=== PATIENT | female | born 1950 | race Caucasian/White ===

== ENCOUNTER 2017-09-01 13:09 | Emergency (ER) | payer MEDICARE ==
[~2017-09-01] VITALS: Ht 170.2 cm; Wt 74.8 kg
[2017-09-01 13:10] VITALS: BP 116/72
[2017-09-01] MEDS ORDERED: oxyCODONE/APAP (5/325 MG) 1 UDTAB TABLET ONE (13:40)
[2017-09-01] MEDS ORDERED: IBUPROFEN 600 MG TABLET PO ONE ×2 (13:40→14:00)
[2017-09-01] MEDS ORDERED: oxyCODONE/APAP (5/325 MG) 1 UDTAB TABLET PO ONE (14:00)
== END 2017-09-01 14:46 | disposition home or self-care (01) ==
LOC: ER 13:13
DX: M25.571 Pain in right ankle and joints of right foot (principal); Z59.0 Homelessness
CPT/HCPCS: 73610-TC; A4606; Z7610

== ENCOUNTER 2017-09-05 20:23 | Emergency (ER) | payer MEDICARE ==
[~2017-09-05] VITALS: Ht 170.2 cm; Wt 74.8 kg
[2017-09-05 20:33] VITALS: BP 147/85
[2017-09-05] MEDS ORDERED: LOPERAMIDE HCL (2 MG CAP) 2 MG CAPSULE PO ONE ×2 (21:44→22:00)
== END 2017-09-05 21:54 | disposition home or self-care (01) ==
LOC: ER 20:23
DX: R19.7 Diarrhea, unspecified (principal); Z59.0 Homelessness; F32.9 Major depressive disorder, single episode, unspecified; F41.9 Anxiety disorder, unspecified
CPT/HCPCS: A4606; Z7610

== ENCOUNTER 2017-11-23 17:41 | Emergency (ER) | payer MEDICARE, MEDICAID ==
[~2017-11-23] VITALS: Ht 170.2 cm; Wt 65.3 kg
[2017-11-23 17:57] VITALS: BP 168/95
[2017-11-23] MEDS ORDERED: ACETAMINOPHEN ES 500 MG TABLET ONE (18:16)
[2017-11-23] MEDS ORDERED: ACETAMINOPHEN 325 MG TABLET PO ONE (18:30)
== END 2017-11-23 20:20 | disposition home or self-care (01) ==
LOC: ER 17:43
DX: S63.616A Unspecified sprain of right little finger, initial encounter (principal); F32.9 Major depressive disorder, single episode, unspecified; F41.9 Anxiety disorder, unspecified; F17.200 Nicotine dependence, unspecified, uncomplicated; Z60.2 Problems related to living alone; W01.0XXA Fall on same level from slipping, tripping and stumbling without subsequent striking against object, initial encounter; Y93.89 Activity, other specified; Y92.89 Other specified places as the place of occurrence of the external cause; Y99.8 Other external cause status
CPT/HCPCS: 73140-TC; A4606; Z7610

== ENCOUNTER 2017-12-26 23:07 | Emergency (ER) | payer MEDICARE, OTHER ==
[~2017-12-26] VITALS: Ht 170.2 cm; Wt 63.5 kg
--- NOTE | 2017-12-27 01:13 | NUR ---
PT AMBULATED IN WITH A STEADY GAIT. PT IS TRYING TO GIVE A URINE SAMPLE. PT IS C/O LOWER BACK PAIN AND UNABLE TO CONTROL HER BLADDER.
--- NOTE | 2017-12-27 01:38 | NUR ---
PT LEFT FOR CT VIA GURNEY.
--- NOTE | 2017-12-27 01:55 | NUR ---
PT RETURNED FROM CT.
[2017-12-27] MEDS ORDERED: IBUPROFEN 400 MG TABLET ONE (03:08)
--- NOTE | 2017-12-27 03:14 | NUR ---
Patient discharged to home in stable condition. Written and verbal after care instructions given. Patient verbalizes understanding of instruction. PT REC'D 800 MG IBUPROPHEN PO AND THEN PT AMBULATED OUT WITH A STEADY GAIT. VSS.
[2017-12-27 03:15] VITALS: BP 138/97
[2017-12-27] MEDS ORDERED: IBUPROFEN 400 MG TABLET PO ONE (03:30)
== END 2017-12-27 03:16 | disposition home or self-care (01) ==
LOC: ER 23:07
DX: R32 Unspecified urinary incontinence (principal); F41.9 Anxiety disorder, unspecified; F17.200 Nicotine dependence, unspecified, uncomplicated; Z60.2 Problems related to living alone
CPT/HCPCS: 72128; 72131; 99284; A4606; Z7610

== ENCOUNTER 2018-01-18 15:32 | Inpatient (IN) | payer MEDICARE, OTHER ==
[~2018-01-18] VITALS: Ht 170.2 cm; Wt 64.4 kg
--- NOTE | 2018-01-18 15:34 | NUR ---
BIB FABRIC AND ACCESSORIES ESTIMATOR FOR HOMELESS FOR PSYCH EVAL, PHILIP NOTED, VSS, RESP EVEN AND UNLABORED, PT WAS PUT ON MONITOR, WAITING FOR MD RYAN.
[2018-01-18 16:20] LABS: CALCIUM, SERUM 9.1 mg/dL (8.5-10.1); CARBON DIOXIDE 34 mmol/L (21-32); CHLORIDE 105 mmol/L (98-107); CREATININE 0.8 mg/dL (0.6-1.3); GLUCOSE 136 mg/dL (74-106); SODIUM SERUM 141 mmol/L (136-145); UREA NITROGEN, BLOOD 21 mg/dL (7-18)
--- NOTE | 2018-01-18 16:30 | NUR ---
PT UNABLE TO GIVE URINE SAMPLE AT THIS MOMENT
[2018-01-18 16:31] LABS: ALANINE AMINOTRANSFERASE 21 U/L (12-78); ALBUMIN 3.6 g/dL (3.4-5.0); ALKALINE PHOSPHATASE 90 U/L (46-116); ASPARTATE AMINOTRANSFERASE 19 U/L (15-37); BILIRUBIN,DIRECT 0.1 mg/dL (0.0-0.2); BILIRUBIN,TOTAL 0.4 mg/dL (0.2-1.0); TOTAL PROTEIN, SERUM 6.8 g/dL (6.4-8.2)
[2018-01-18 16:48] LABS: ACETAMINOPHEN < 2 ug/ml (10-30); ALCOHOL, BLOOD < 3 mg/dL (0-0); SALICYLATE < 2.8 mg/dL (2.8-20.0)
[2018-01-18 16:53] LABS: BASOPHILS % (AUTO) 0.8 % (0.0-2.0); HEMATOCRIT 34 % (33-45); HEMOGLOBIN 11.7 g/dL (11.5-14.8); LYMPHOCYTES # (AUTO) 1.6 /CMM (0.8-4.8); LYMPHOCYTES % (AUTO) 30.2 % (20.0-44.0); MEAN CORPUSCULAR HEMOGLOBIN 30 PG (26.0-33.0); MEAN CORPUSCULAR HGB CONC 34 g/dl (31.0-36.0); MEAN CORPUSCULAR VOLUME 88 fL (82-100); MONOCYTES # (AUTO) 0.3 /CMM (0.1-1.30); MONOCYTES % (AUTO) 6.5 % (2.0-12.0); NEUTROPHILS # (AUTO) 3.2 /CMM (1.8-8.9); NEUTROPHILS % (AUTO) 59.5 % (43.0-81.0); PLATELET COUNT (AUTO) 167 /CMM (150-450); RDW COEFFICIENT OF VARIATION 13.1 (11.5-15.0); WHITE BLOOD COUNT (AUTO) 5.3 K/uL (4.3-11.0)
--- NOTE | 2018-01-18 16:59 | NUR ---
PINKY PSYCH CLINICIAN ON THE WAY TO [facility] PT
[2018-01-18] MEDS ORDERED: POTASSIUM CHLORIDE 20 MEQ TAB.PRT.SR PO ONE ×2 (17:00→17:04)
[2018-01-18] MEDS ORDERED: DIPH1TAB28 PO (17:05)
[2018-01-18] MEDS ORDERED: ONDA4TAB8 SL (17:05)
[2018-01-18] MEDS ORDERED: NAPR-1009 PO (17:05)
[2018-01-18 17:12] LABS: APPEARANCE,URINE Slightly Cloudy (CLEAR); BILIRUBIN,URINE SMALL (NEGATIVE); BLOOD, URINE Negative Ery/uL (NEGATIVE); COLOR,URINE Dark (YELLOW); KETONES,URINE Negative (NEGATIVE); LEUKOCYTE ESTERASE ,URINE Negative (NEGATIVE); NITRITE, URINE Negative (NEGATIVE); PROTEIN,URINE 30 mg/dl (NEGATIVE); UGLUCOSE Negative (NEGATIVE)
[2018-01-18 17:25] LABS: BACTERIA,URINE Few /HPF (None Seen); MUCUS,URINE Many /LPF (None Seen); RBC,URINE 0-2 /HPF (0-2); SQUAMOUS EPITHELIAL CELL,UR Few /HPF (None Seen); WBC,URINE 0-2 /HPF (0-3)
--- NOTE | 2018-01-18 18:55 | NUR ---
REPORT GIVEN TO QUAN DAVIS FOR TROY.
--- NOTE | 2018-01-18 19:21 | NUR ---
REPORT GIVEN TO INDRA GLASS GPS FOR TROY
--- NOTE | 2018-01-18 19:37 | NUR ---
Patient is resting comfortably in bed. Easily aroused. VSS. NAD. SAFETY MEASURES IN PLACE. CALL LIGHT WITHIN REACH. PREPARING PATIENT FOR TRANSPORT
--- NOTE | 2018-01-18 19:42 | NUR ---
PT TRANSPORTED STABLE CONDITION. VSS.
[2018-01-18] MEDS ORDERED: ONDANSETRON 4 MG TAB.RAPDIS SL PRN (20:00)
[2018-01-18] MEDS ORDERED: MAG HYDROX/AL HYDROX/SIMETH 30 ML UDC PO PRN (20:00)
[2018-01-18] MEDS ORDERED: NAPROXEN 500 MG TABLET PO PRN (20:00)
[2018-01-18] MEDS ORDERED: DIPHENOXYLATE HCL/ATROP SULF 1 UDTAB TABLET PO PRN (20:00)
[2018-01-18] MEDS ORDERED: LORAZEPAM 0.5 MG TABLET PO PRN (20:00)
[2018-01-18] MEDS ORDERED: MAGNESIUM HYDROXIDE 30 ML UDC PO PRN (20:00)
--- NOTE | 2018-01-18 20:50 | NUR ---
ADMISSION NOTES: ADMITTED A 67Y/O FEMALE, ADMITTED FROM ER. PT IS HOMELESS. PT IS ON 5150 HOLD FOR GD. PER HOLD PT IS CONFUSED, ANGRY, IRRITABLE. PT STATED "THERE'S A MAN WHOSE BEEN STALKING ME FOR 15 YRS THE POLICE ARE NOT DOING ANYTHING ABOUT IT". PATIENT STATED THAT SHE THINK PEOPLE IS AFTER HER. PT HAS NOT BEEN TAKING HER MEDICATION FOR THE PAST FEW MONTHS. PT HAS HISTORY OF BIPOLAR DISORDER. UPON FACE TO FACE ASSESSMENT. PATIENT APPEARS TO BE ALERT, ORIENTED X1, ANXIOUS, CONFUSED, IRRITABLE, EASILY AGITATED, PARANOID. V/S STABLE. NO COMPLAIN OF PAIN/DISCOMFORT. NO ACUTE DISTRESS NOTED. BELONGINGS INVENTORIED AND CHECKED FOR CONTRABAND. PUT IT IN SAFE/LOCKED CABINET. PATIENT IS UNDER THE PSYCHIATRIC CARE OF DR. COLE AND UNDER THE MEDICAL CARE OF DR. PEARL. BOTH DOCTORS ARE AWARE OF THE ADMISSION. REFUSED SKIN/BODY ASSESSMENT. MRSA DONE IN ER. BED LOCKED AND PLACED IN LOWEST POSITION. WILL CONTINUE TO MONITOR Q15MIN FOR SAFETY AND BEHAVIOR.
[2018-01-19 00:04] VITALS: BP 117/76
[2018-01-19 07:08] LABS: BASOPHILS % (AUTO) 0.6 % (0.0-2.0); EOSINOPHILS % (AUTO) 5.5 % (0.0-6.0); HEMATOCRIT 37 % (33-45); HEMOGLOBIN 12.7 g/dL (11.5-14.8); LYMPHOCYTES # (AUTO) 1.6 /CMM (0.8-4.8); LYMPHOCYTES % (AUTO) 42.9 % (20.0-44.0); MEAN CORPUSCULAR HEMOGLOBIN 31 PG (26.0-33.0); MEAN CORPUSCULAR HGB CONC 34 g/dl (31.0-36.0); MEAN CORPUSCULAR VOLUME 90 fL (82-100); MONOCYTES # (AUTO) 0.3 /CMM (0.1-1.30); MONOCYTES % (AUTO) 8.9 % (2.0-12.0); NEUTROPHILS # (AUTO) 1.6 /CMM (1.8-8.9); NEUTROPHILS % (AUTO) 42.1 % (43.0-81.0); PLATELET COUNT (AUTO) 157 /CMM (150-450); RDW COEFFICIENT OF VARIATION 13.8 (11.5-15.0); RED BLOOD CELL COUNT(AUTO) 4.13 MIL/uL (4.0-5.2); WHITE BLOOD COUNT (AUTO) 3.8 K/uL (4.3-11.0)
[2018-01-19 07:26] LABS: CHOLESTEROL 156 mg/dL (<200); HDL CHOLESTEROL 49 mg/dL (40-60); LDL 97 mg/dL (0-99); TRIGLYCERIDES 67 mg/dL (30-150)
[2018-01-19 07:29] LABS: ALBUMIN 3.3 g/dL (3.4-5.0); BILIRUBIN,TOTAL 0.6 mg/dL (0.2-1.0); CALCIUM, SERUM 8.6 mg/dL (8.5-10.1); CREATININE 0.7 mg/dL (0.6-1.3); POTASSIUM 3.3 mmol/L (3.5-5.1); TOTAL PROTEIN, SERUM 6.4 g/dL (6.4-8.2)
[2018-01-19 08:00] VITALS: BP 117/81
[2018-01-19] MEDS ORDERED: POTASSIUM CHLORIDE 20 MEQ TAB.PRT.SR PO ONE (10:30)
[2018-01-19] MEDS: ACETAMINOPHEN 325 MG TABLET PO PRN ×2 (10:44→22:03)
[2018-01-19] MEDS: DIVALPROEX SODIUM 250 MG TABLET.DR PO SCH ×2 (12:07→21:54)
[2018-01-19] MEDS: VENLAFAXINE XR 75 MG CAP.SR.24H PO SCH (12:07)
--- NOTE | 2018-01-19 15:18 | NUR ---
Initial Discharge Plan: Pt is currently homeless and does not have anywhere to go until she receives her section 8 housing. Per pt, she agreed to go to a shelter facility until her housing voucher comes in. SW will work with the pt and the MD regarding appropriate discharge planning. SW will form a safe and proper discharge.
[2018-01-19 16:08] VITALS: BP 120/76
[2018-01-19 20:00] VITALS: BP_SYST 108; BP_SYST 126; BP_DIAS 64; BP_DIAS 75
[2018-01-19] MEDS: QUETIAPINE FUMARATE 25 MG TABLET PO SCH (21:54)
--- NOTE | 2018-01-19 22:05 | NUR ---
RN NOTES PT C/O MILD HEADACHE, REQUESTING TYLENOL. ADMINISTERED PRN TYLENOL ORDERED.
[2018-01-20] MEDS: VENLAFAXINE XR 75 MG CAP.SR.24H PO SCH (08:11)
[2018-01-20] MEDS: DIVALPROEX SODIUM 250 MG TABLET.DR PO SCH ×2 (08:11→21:04)
[2018-01-20 08:24] VITALS: BP 131/82
[2018-01-20 16:00] VITALS: BP 141/82
[2018-01-20 20:00] VITALS: BP 139/89
[2018-01-20] MEDS: ZOLPIDEM TARTRATE 5 MG TABLET PO PRN (22:04)
[2018-01-20] MEDS: QUETIAPINE FUMARATE 25 MG TABLET PO SCH (22:05)
[2018-01-21 08:40] VITALS: BP 124/70
[2018-01-21] MEDS: DIVALPROEX SODIUM 250 MG TABLET.DR PO SCH ×2 (09:03→21:10)
[2018-01-21] MEDS: VENLAFAXINE XR 75 MG CAP.SR.24H PO SCH (09:03)
[2018-01-21 16:00] VITALS: BP 120/69
[2018-01-21 20:36] VITALS: BP 131/73
[2018-01-21] MEDS: QUETIAPINE FUMARATE 25 MG TABLET PO SCH (21:10)
[2018-01-22 08:00] VITALS: BP 113/68
[2018-01-22] MEDS: VENLAFAXINE XR 75 MG CAP.SR.24H PO SCH (08:12)
[2018-01-22] MEDS: DIVALPROEX SODIUM 250 MG TABLET.DR PO SCH ×2 (08:12→20:54)
--- NOTE | 2018-01-22 15:43 | NUR ---
CAITIE spoke to Alexa Turner ([phone]) from the [facility] regarding discharge planning. Alexa stated that her housing is going to need more time and so a retirement facility would be a good discharge plan.
[2018-01-22 16:00] VITALS: BP 110/60
[2018-01-22 19:49] VITALS: BP 113/72
[2018-01-22] MEDS: QUETIAPINE FUMARATE 25 MG TABLET PO SCH (21:07)
[2018-01-22] MEDS: ZOLPIDEM TARTRATE 5 MG TABLET PO PRN (21:41)
[2018-01-23 08:00] VITALS: BP 118/67
[2018-01-23] MEDS: VENLAFAXINE XR 75 MG CAP.SR.24H PO SCH (08:15)
[2018-01-23] MEDS: DIVALPROEX SODIUM 250 MG TABLET.DR PO SCH ×2 (08:15→21:13)
[2018-01-23 16:00] VITALS: BP 108/67
[2018-01-23 20:08] VITALS: BP 98/52
[2018-01-23] MEDS: QUETIAPINE FUMARATE 25 MG TABLET PO SCH (21:13)
--- NOTE | 2018-01-23 21:15 | NUR ---
GPS-RN PATIENT IS REQUESTING FOR NICOTINE PATCH, PATIENT STATED SHE CONSUMED 1/2 PACK OF CIGARETTE PER DAY. OXYGEN FURNACE OPERATOR ALVINA NOTIFIED WITH NEW ORDERS.
[2018-01-23] MEDS: ACETAMINOPHEN 325 MG TABLET PO PRN (21:26)
[2018-01-24 08:00] VITALS: BP 126/63
[2018-01-24] MEDS: VENLAFAXINE XR 75 MG CAP.SR.24H PO SCH (08:02)
[2018-01-24] MEDS: DIVALPROEX SODIUM 250 MG TABLET.DR PO SCH ×2 (08:02→20:32)
[2018-01-24] MEDS: NICOTINE PATCH (21MG) 21 MG PATCH.TD24 TD SCH (08:23)
[2018-01-24 16:00] VITALS: BP 132/86
[2018-01-24 19:50] VITALS: BP 98/52
[2018-01-24] MEDS: ACETAMINOPHEN 325 MG TABLET PO PRN (20:36)
[2018-01-24] MEDS: QUETIAPINE FUMARATE 25 MG TABLET PO SCH (21:02)
[2018-01-24] MEDS: ZOLPIDEM TARTRATE 5 MG TABLET PO PRN (21:44)
[2018-01-25 08:00] VITALS: BP 130/78
[2018-01-25] MEDS: VENLAFAXINE XR 75 MG CAP.SR.24H PO SCH (08:09)
[2018-01-25] MEDS: NICOTINE PATCH (21MG) 21 MG PATCH.TD24 TD SCH (08:09)
[2018-01-25] MEDS: DIVALPROEX SODIUM 250 MG TABLET.DR PO SCH ×2 (08:09→21:04)
[2018-01-25] MEDS: ACETAMINOPHEN 325 MG TABLET PO PRN (13:51)
[2018-01-25 15:56] VITALS: BP 107/66
[2018-01-25 19:59] VITALS: BP 128/72
[2018-01-25 20:00] VITALS: BP 128/72
[2018-01-25] MEDS: QUETIAPINE FUMARATE 25 MG TABLET PO SCH (21:04)
[2018-01-25] MEDS: ZOLPIDEM TARTRATE 5 MG TABLET PO PRN (21:41)
[2018-01-26 08:00] VITALS: BP 118/67
[2018-01-26] MEDS: DIVALPROEX SODIUM 250 MG TABLET.DR PO SCH (08:46)
[2018-01-26] MEDS: VENLAFAXINE XR 75 MG CAP.SR.24H PO SCH (08:47)
[2018-01-26] MEDS: NICOTINE PATCH (21MG) 21 MG PATCH.TD24 TD SCH (08:47)
--- NOTE | 2018-01-26 09:17 | NUR ---
DR. COLE GAVE AN ORDER TO D/C HOLD AND D/C TO [facility] AND TO FOLLOW UP WITH PSYCH AND MEDICAL DOCTORS. PSYCHIATRIST ORDERED TO CONTINUE SAME MEDS INCLUDING PRN.
--- NOTE | 2018-01-26 11:20 | NUR ---
Pt was accepted to [facility] according to CYRIL and Uziel ([phone]).
--- NOTE | 2018-01-26 11:22 | NUR ---
CAITIE called Alexa Turner ([phone]) from the [facility] and left her a message on her voicemail stating that the pt is being transferred to a snf facility called [facility] and provided her with the address and the phone number of the facility.
--- NOTE | 2018-01-26 14:31 | NUR ---
Discharge Note: Pt was discharged to [facility] ([facility]) located at [address] [place] [address]; ([phone]). Pt was transported via [facility] (Trip #[id number]) at 2PM. Pt did not want any of her family members to be contacted and so the only contacted Alexa Turner ([phone]) from the [facility] and informed her of the new location. Upon discharge, pt was extremely anxious about leaving the facility and going to the new one because she wanted to be in the real world. Pts mood was euthymic and her affect was excited and anxious. Pt denied both homicidal and suicidal ideation as well as auditory and visual hallucinations. Pt was provided with substance abuse referrals as well as with smoking cessation referrals that are listed below. Pt will be under the care of psychiatrist, Dr. Webber, located at [address] [address], [place] [address]; and floor director, Dr. Mayra Harmon, located at [address] [place] [address]; . Substance Abuse Referrals: [facility] [address] [place] [address] Tel. [facility] Primary Care [facility] [address] [place] Provider Mental Health Treatment Tele-dermatology HIV Services Telemedicine Services [facility] [address] [place] [address] [facility] [address] [place] [address] Smoking Cessation Referrals: [facility] 800-LUNGUSA [employer] [phone]
--- NOTE | 2018-01-26 14:35 | NUR ---
GPS/RN-NOTES PATIENT WAS DISCHARGE TO [facility] ([facility]) TODAY. AND DR. PETTIT MADE AWARE WITH ORDERS.REPORT WAS GIVEN TO YU (ADMITTING NURSE) FACILITY STAFF. PATIENT DID NOT VERBALIZE SI/HI,DENIES VISUAL,AUDITORY HALLUCINATIONS AT THE TIME OF DISCHARGE. PER PATIENT DYE PENETRANT TESTING TECHNICIAN Alexa Turner ([phone]) WAS AWARE OF THE DISCHARGE.PATIENT LEFT THE UNIT IN STABLE CONDITION WITH ALL HER BELONGINGS.SERGEANT OF CORRECTIONS BY AMBULANCE VIA GURNEY WITH TWO STAFF ASSIST.
== END 2018-01-26 14:30 | DRG 885 ==
LOC: ER 15:35 → GPS 18:39
PROVIDERS: ADMIT Psychiatry & Neurology Psychiatry; ATTEND Psychiatry & Neurology Psychiatry
DX: F31.5 Bipolar disorder, current episode depressed, severe, with psychotic features (principal); F29 Unspecified psychosis not due to a substance or known physiological condition; Z73.6 Limitation of activities due to disability; I10 Essential (primary) hypertension; F41.9 Anxiety disorder, unspecified; Z79.899 Other long term (current) drug therapy; F15.10 Other stimulant abuse, uncomplicated; S62.636A Displaced fracture of distal phalanx of right little finger, initial encounter for closed fracture; W19.XXXA Unspecified fall, initial encounter; Y92.9 Unspecified place or not applicable; E78.5 Hyperlipidemia, unspecified; J43.9 Emphysema, unspecified; Z59.0 Homelessness; Z81.8 Family history of other mental and behavioral disorders
CPT/HCPCS: 36415; 73140-TC; 80048-TC; 80053-TC; 80061-TC; 80076-TC; 80164-TC; 80305; 81000-TC; 85025-TC; 87081-TC; A4606; G0480; Z7610

== ENCOUNTER 2018-03-08 13:49 | Inpatient (IN) | payer MEDICARE, OTHER ==
[~2018-03-08] VITALS: Ht 170.2 cm; Wt 62.1 kg
[~2018-03-08 13:49] MED LIST: DIPH1TAB28 PO; NAPR-1009 PO; ONDA4TAB8 SL
--- NOTE | 2018-03-08 14:05 | NUR ---
NUMBNESS TO BILATERAL LOWER EXTREMITIES X 5 DAYS. PT AAOX3, VSS. DENIES CP, SOB, DIZZINESS, N/V/D, WEAKNESS @ THIS TIME. AWAITING EVAL BY MD/BEEF SPECIALIST.
[2018-03-08 14:45] LABS: BASOPHILS # (AUTO) 0.1 /CMM (0.0-0.2); BASOPHILS % (AUTO) 0.9 % (0.0-2.0); EOSINOPHILS % (AUTO) 2.6 % (0.0-6.0); HEMATOCRIT 36 % (33-45); HEMOGLOBIN 12.4 g/dL (11.5-14.8); LYMPHOCYTES # (AUTO) 1.8 /CMM (0.8-4.8); LYMPHOCYTES % (AUTO) 23.7 % (20.0-44.0); MEAN CORPUSCULAR HGB CONC 35 g/dl (31.0-36.0); MEAN CORPUSCULAR VOLUME 89 fL (82-100); MONOCYTES # (AUTO) 0.5 /CMM (0.1-1.30); MONOCYTES % (AUTO) 6.4 % (2.0-12.0); NEUTROPHILS # (AUTO) 4.8 /CMM (1.8-8.9); NEUTROPHILS % (AUTO) 66.4 % (43.0-81.0); PLATELET COUNT (AUTO) 215 /CMM (150-450); RDW COEFFICIENT OF VARIATION 12.8 (11.5-15.0); RED BLOOD CELL COUNT(AUTO) 4.05 MIL/uL (4.0-5.2); WHITE BLOOD COUNT (AUTO) 7.4 K/uL (4.3-11.0)
[2018-03-08 14:53] LABS: CARBON DIOXIDE 34 mmol/L (21-32); CHLORIDE 105 mmol/L (98-107); CREATININE 0.6 mg/dL (0.6-1.3); GLUCOSE 104 mg/dL (74-106); POTASSIUM 3.9 mmol/L (3.5-5.1); SODIUM SERUM 141 mmol/L (136-145); UREA NITROGEN, BLOOD 11 mg/dL (7-18)
[2018-03-08 14:55] LABS: ALCOHOL, BLOOD < 3 mg/dL (0-0)
--- NOTE | 2018-03-08 16:00 | NUR ---
PT SEEN & EVAL'D BY ART, HOTEL YARDPERSON.
--- NOTE | 2018-03-08 16:13 | NUR ---
URINE COLLECTED & SENT TO LAB.
[2018-03-08] MEDS ORDERED: ARIP5TAB20 PO (16:29)
[2018-03-08] MEDS ORDERED: SERT25TA5 PO (16:29)
--- NOTE | 2018-03-08 16:29 | NUR ---
CALLED NURSING OIL RAG WASHER AND REQUESTED A GPS BED FOR THIS PT.
--- NOTE | 2018-03-08 16:30 | NUR ---
Patient is resting comfortably in bed with eyes closed. Easily aroused. VSS
[2018-03-08 16:48] LABS: APPEARANCE,URINE CLEAR (CLEAR); BILIRUBIN,URINE NEGATIVE (NEGATIVE); BLOOD, URINE NEGATIVE Ery/uL (NEGATIVE); COLOR,URINE YELLOW (YELLOW); KETONES,URINE NEGATIVE (NEGATIVE); LEUKOCYTE ESTERASE ,URINE NEGATIVE (NEGATIVE); NITRITE, URINE NEGATIVE (NEGATIVE); PH,URINE 6.5 (5.0-8.0); PROTEIN,URINE NEGATIVE (NEGATIVE); UGLUCOSE NEGATIVE (NEGATIVE)
--- NOTE | 2018-03-08 17:10 | NUR ---
PT IS ASSIGNED TO GPS RM#: -A, DX: DEPRESSION, AND ACCEPTING PSYCHIATRIST: DR YANEZ
[2018-03-08 17:43] LABS: BACTERIA,URINE None seen /HPF (None Seen); RBC,URINE 0-2 /HPF (0-2); SQUAMOUS EPITHELIAL CELL,UR Few /HPF (None Seen); WBC,URINE 0-2 /HPF (0-3)
--- NOTE | 2018-03-08 18:08 | NUR ---
RN-CO: DR THOMAS , PORTFOLIO LEAD FOR DR COLE GAVE ADMITTING ORDERS.
[2018-03-08 18:27] VITALS: BP 118/70
[2018-03-08] MEDS ORDERED: MAGNESIUM HYDROXIDE 30 ML UDC PO PRN (18:30)
[2018-03-08] MEDS ORDERED: MAG HYDROX/AL HYDROX/SIMETH 30 ML UDC PO PRN (18:30)
--- NOTE | 2018-03-08 20:00 | NUR ---
ADMITTED FROM [facility]/ER ON VOLUNTARY STATUS FOR MAJOR DEPRESSION. PATIENT IS AWAKE ALERT ORIENTED X3, DENIES ANY PAIN, RESPIRATION EVEN, BREATHING PATTERN NON-LABORED, NO ACUTE DISTRESS NOTED. PATIENT CLAIMED THAT SHE IS HOMELESS. BELONGINGS WERE INVENTORIED AND CHECKED FOR CONTRABAND. MED RECON DONE. PATIENT IS COOPERATIVE, DEPRESSED. CALM, APPROPRIATE, THOUGHT PROCESS INTACT. SKIN CLEAR. HAD BOWEL MOVEMENT 03/08/2018. CALLED EX- [facility] IN [place] X3,, NO ANSWER, CHARGE NURSE MADE AWARE. BED LOCKED AND PLACED ON LOWEST POSITION. WILL CONTINUE TO MONITOR Q 15 MINS. TO MAINTAIN SAFETY. LUNGS DIMINISHED. PATIENT COMPLAINING OF CONGESTION, MADE AWARE IN THE DAYTIME, DR. BOCANEGRA HAS NO NEW ORDER
[2018-03-09 07:00] LABS: ALBUMIN 3.2 g/dL (3.4-5.0); BILIRUBIN,TOTAL 0.5 mg/dL (0.2-1.0); CALCIUM, SERUM 8.7 mg/dL (8.5-10.1); CREATININE 0.5 mg/dL (0.6-1.3); TOTAL PROTEIN, SERUM 6.4 g/dL (6.4-8.2)
[2018-03-09 08:00] VITALS: BP 119/74
[2018-03-09] MEDS ORDERED: ARIPIPRAZOLE 5 MG TABLET PO SCH (09:00)
[2018-03-09] MEDS: ARIPIPRAZOLE 5 MG TABLET PO SCH (13:34)
[2018-03-09] MEDS: SERTRALINE HCL 25 MG TABLET PO SCH (13:34)
--- NOTE | 2018-03-09 13:50 | NUR ---
CAITIE called the pt's daughter, Dayami ([phone]), and informed her that the pt is in the hospital and that she just wanted to know that the rest of her family members are alive and well. Pt's daughter stated none of her children have much of a relationship with the pt but they are all doing well.
[2018-03-09] MEDS: ACETAMINOPHEN 325 MG TABLET PO PRN (13:56)
--- NOTE | 2018-03-09 13:56 | NUR ---
GPS/RN-NOTES PATIENT REQUESTING FOR TYLENOL FOR HER HEADACHE. TYLENOL 650MG P.O GIVEN PRN ORDER.
--- NOTE | 2018-03-09 15:51 | NUR ---
Initial Discharge Plan: Pt is janet davis nut stated that her plan is to return to a nursing home facility. SW will work with the MD and the pt regarding discharge planning. SW will form a safe and proper discharge.
[2018-03-09 16:00] VITALS: BP 104/57
[2018-03-09 16:17] VITALS: BP 111/64
[2018-03-09 20:00] VITALS: BP 113/67
--- NOTE | 2018-03-09 20:42 | NUR ---
REQUESTING FOR A SLEEPING PILL.
[2018-03-09] MEDS: TEMAZEPAM 7.5 MG CAPSULE PO PRN (20:44)
--- NOTE | 2018-03-09 20:45 | NUR ---
TEMAZEPAM 15 MG CAP PO GIVEN FOR SLEEP, PER PATIENT'S REQUEST.
[2018-03-09] MEDS: NAPROXEN 500 MG TABLET PO PRN (21:18)
--- NOTE | 2018-03-09 21:18 | NUR ---
C/O ARTHRITIC PAIN, NECK AREA. NAPROXEN 500 MG TAB PO GIVEN.
[2018-03-10 08:00] VITALS: BP 116/69
[2018-03-10] MEDS: NICOTINE PATCH (14MG) 14 MG PATCH.TD24 TD SCH (09:01)
[2018-03-10] MEDS: SERTRALINE HCL 25 MG TABLET PO SCH (09:01)
[2018-03-10] MEDS: ARIPIPRAZOLE 5 MG TABLET PO SCH (09:01)
[2018-03-10 16:01] VITALS: BP 107/59
[2018-03-10 20:00] VITALS: BP 124/72
[2018-03-10] MEDS: TEMAZEPAM 7.5 MG CAPSULE PO PRN (21:01)
--- NOTE | 2018-03-10 21:01 | NUR ---
TWEMAZEPAM 15 MG CAP PO GIVEN FOR SLEEP PER PATIENT'S REQUEST.
[2018-03-11 08:00] VITALS: BP 119/73
[2018-03-11] MEDS: NICOTINE PATCH (14MG) 14 MG PATCH.TD24 TD SCH (09:00)
[2018-03-11] MEDS: SERTRALINE HCL 25 MG TABLET PO SCH (09:00)
[2018-03-11] MEDS: ARIPIPRAZOLE 5 MG TABLET PO SCH (09:00)
--- NOTE | 2018-03-11 14:00 | NUR ---
[id number]: PT COMPLAINED OF RIGHT ANKLE PAIN AND NOTIFIED DR. BHAVESH FAY AND PENDING RETURN PHONE CALL
[2018-03-11 16:00] VITALS: BP 111/67
--- NOTE | 2018-03-11 16:18 | NUR ---
[id number]: PT COMPLAINED OF RIGHT HAND PINKY REDNESS AND SWOLLEN. NOTIFIED DR. FAY AND PENDING RETURN PHONE CALL
--- NOTE | 2018-03-11 19:09 | NUR ---
GPS/RN OPENING NOTES RECEIVED PATIENT, IN THE ACTIVITY ROOM WATCHING TV, ALERT X2, WITH NO S/S OF DISTRESS OR CHANGE OF BEHAVIOR, RESPIRATIONS EVEN AND UNLABORED. SKIN WARM TO TOUCH. WILL MONITOR FOR ANY CHANGES. WILL CONTINUE TO MONITOR. RECEIVED ENDORSEMENT FROM AM RN FOR TROY.
[2018-03-11 19:54] VITALS: BP 120/63
[2018-03-11 19:55] VITALS: BP 111/67
[2018-03-11 20:00] VITALS: BP 109/67
[2018-03-11 20:03] VITALS: BP 109/67
[2018-03-11] MEDS: ACETAMINOPHEN 325 MG TABLET PO PRN (21:55)
[2018-03-11] MEDS: TEMAZEPAM 7.5 MG CAPSULE PO PRN (22:06)
[2018-03-12] MEDS: ACETAMINOPHEN 325 MG TABLET PO PRN (06:03)
--- NOTE | 2018-03-12 06:04 | NUR ---
GPS/RN NOTES PATIENT REPORTED PAIN IN LEFT PINKY FINGER AND LEFT ANKLE, OBSERVE SWOLLEN , TO MONITOR RELIEF, REQUEST FOR F/U FOR PAIN EFFECTIVENESS FOR RELIEF.
[2018-03-12 08:00] VITALS: BP 121/75
[2018-03-12] MEDS: NICOTINE PATCH (14MG) 14 MG PATCH.TD24 TD SCH (08:33)
[2018-03-12] MEDS: ARIPIPRAZOLE 5 MG TABLET PO SCH (08:33)
[2018-03-12] MEDS: SERTRALINE HCL 25 MG TABLET PO SCH (08:33)
--- NOTE | 2018-03-12 11:09 | NUR ---
Pt was accepted to [facility] ([facility]).
--- NOTE | 2018-03-12 11:10 | NUR ---
SW informed the pt that she was accepted to [facility] ([facility]) and that her tentative discharge date is this . The pt agreed with this plan and accepted the placement.
--- NOTE | 2018-03-12 11:16 | NUR ---
SW was told by the psychiatrist that the pt denied substance use but the labs show traces of substances in her system. CAITIE will conduct a substance abuse intervention with the pt.
--- NOTE | 2018-03-12 11:43 | NUR ---
WOUND CARE CONSULT: PT PRESENTS WITH RT 5TH FINGER SWELLING. DEFER TO MD. NO OPEN WOUNDS NOTED. PT IS AMBULATORY AND CONTINENT AT THIS TIME. WILL SEE PRN.
--- NOTE | 2018-03-12 12:07 | NUR ---
SW conducted a substance abuse intervention with the pt.
--- NOTE | 2018-03-12 15:50 | NUR ---
CAITIE called Alexa Turner ([phone]) from the [facility] and she stated that the pt can make the choice on whether or not she wants a SNF. CAITIE informed her that she wants a tent and to be out on the streets. Alexa stated that she would stop by to visit the pt with her pillowcase cutter.
[2018-03-12 16:00] VITALS: BP 120/64
--- NOTE | 2018-03-12 19:30 | NUR ---
RECEIVED PATIENT IN BED AWAKE. AO X 3, ABLE TO MAKE NEEDS KNOWN. NO ACUTE DISTRESS NOTED. DENIES ANY PAIN AT THIS TIME. SAFETY REMINDERS GIVEN. ON LOW BED WITH BILATERAL UPPER SIDE RAILS UP. CALL ROBERT WITHIN EASY REACH. WILL CONTINUE TO MONITOR.
[2018-03-12 20:00] VITALS: BP 114/67
[2018-03-12 20:02] VITALS: BP 114/63
[2018-03-12] MEDS: NAPROXEN 500 MG TABLET PO PRN (22:05)
[2018-03-12] MEDS: TEMAZEPAM 7.5 MG CAPSULE PO PRN (22:06)
[2018-03-12] MEDS: clonazePAM 0.5 MG TABLET PO PRN (23:10)
--- NOTE | 2018-03-13 06:28 | NUR ---
PATIENT ASLEEP, EASILY AROUSABLE. RESPIRATIONS EVEN. NO SIGNS OF PAIN NOTED. SLEPT WELL. NEEDS ATTENDED. SAFETY PRECAUTIONS AND COMFORT MEASURES IN PLACE. WILL GIVE REPORT TO DAY SHIFT FOR CONTINUITY OF CARE.
[2018-03-13] MEDS: IBUPROFEN 200 MG TABLET PO PRN ×2 (07:10→18:32)
[2018-03-13 08:00] VITALS: BP 112/68
--- NOTE | 2018-03-13 08:20 | NUR ---
GPS/RN PATIENT IS ANXIOUS, AGITATED AND RESTLESS, ADMINISTERED KLONOPIN 0.5 MG , WILL CONTINUE TO MONITOR.
[2018-03-13] MEDS: NAPROXEN 500 MG TABLET PO PRN (08:56)
[2018-03-13] MEDS: NICOTINE PATCH (14MG) 14 MG PATCH.TD24 TD SCH (08:56)
[2018-03-13] MEDS: ARIPIPRAZOLE 5 MG TABLET PO SCH (08:56)
[2018-03-13] MEDS: clonazePAM 0.5 MG TABLET PO PRN ×2 (08:56→12:58)
[2018-03-13] MEDS: SERTRALINE HCL 25 MG TABLET PO SCH (09:49)
--- NOTE | 2018-03-13 11:30 | NUR ---
GPS/RN PATIENT REFUSED SHOWER X 3, EXPLAINED RISKS AND BENEFITS.
--- NOTE | 2018-03-13 12:58 | NUR ---
GPS/RN PATIENT IS ANXIOUS, AGITATED AND RESTLESS, ADMINISTERED KLONOPIN 0.5 MG , WILL CONTINUE TO MONITOR.
[2018-03-13 16:00] VITALS: BP 145/99
[2018-03-13 20:28] VITALS: BP 119/69
[2018-03-13] MEDS: TEMAZEPAM 7.5 MG CAPSULE PO PRN (20:58)
[2018-03-14] MEDS: clonazePAM 0.5 MG TABLET PO PRN ×3 (05:23→18:41)
[2018-03-14 08:00] VITALS: BP 125/89
[2018-03-14] MEDS: NICOTINE PATCH (14MG) 14 MG PATCH.TD24 TD SCH (09:24)
[2018-03-14] MEDS: SERTRALINE HCL 25 MG TABLET PO SCH (09:24)
[2018-03-14] MEDS: ARIPIPRAZOLE 5 MG TABLET PO SCH (09:24)
[2018-03-14] MEDS: IBUPROFEN 200 MG TABLET PO PRN (09:33)
--- NOTE | 2018-03-14 09:34 | NUR ---
RN NOTE : C/O HEADACHE 5/10 MEDICATE WITH MOTRIN 200MG ,WILL CONTINUE TO MONITOR .
--- NOTE | 2018-03-14 11:34 | NUR ---
RN NOTE:PATIENT C/O ANXIETY ,MEDICATED WITH CLONAZEPAM 0.5MG X1 WILL CONTINUE TO MONITOR.
--- NOTE | 2018-03-14 12:27 | NUR ---
CAITIE met with the pt and she stated that she wants to be discharged to a SNF if he can be discharged today. CAITIE informed her that she would discuss this with her psychiatrist.
--- NOTE | 2018-03-14 12:28 | NUR ---
CAITIE called Alexa Turner ([phone]) from the [facility] and left a message on her voicemail asking if she was still going to visit the pt and that she is considering SNF placement once again.
--- NOTE | 2018-03-14 15:41 | NUR ---
Kyle ([phone]), from [facility], called the SW and the SW informed him that the pt is going to be discharged to [facility] tomorrow.
[2018-03-14 16:00] VITALS: BP 105/64
--- NOTE | 2018-03-14 18:41 | NUR ---
RN NOTE:PATIENT C/O ANXIETY ,MEDICATED WITH CLONAZEPAM 0.5MG X1 WILL CONTINUE TO MONITOR.
[2018-03-14 19:54] VITALS: BP 144/97
[2018-03-14] MEDS: TEMAZEPAM 7.5 MG CAPSULE PO PRN (21:36)
[2018-03-15] MEDS: clonazePAM 0.5 MG TABLET PO PRN (03:57)
[2018-03-15 08:00] VITALS: BP 124/85
[2018-03-15] MEDS: NICOTINE PATCH (14MG) 14 MG PATCH.TD24 TD SCH (08:16)
[2018-03-15] MEDS: SERTRALINE HCL 25 MG TABLET PO SCH (08:16)
[2018-03-15] MEDS: ARIPIPRAZOLE 5 MG TABLET PO SCH (08:16)
[2018-03-15] MEDS: IBUPROFEN 200 MG TABLET PO PRN (09:26)
--- NOTE | 2018-03-15 10:09 | NUR ---
DR. THOMAS GAVE AN ORDER TO CHARGE NURSE TO D/C TO [facility] AND TO FOLLOW UP WITH PSYCH AND MEDICAL DOCTORS. DR. MORA MADE AWARE OF THE DISCHARGE AND RECONCILED MEDS. PT. WITHOUT DISTRESS, DENIES SUICIDAL AND HOMICIDAL. PT. SIGNED THE DISCHARGE PAPERS, PICTURES TAKEN FOR THE SKIN ISSUES AND BELONGINGS READY. REPORT GIVEN TO JOVANI OVER THE FACILITY. Addendum: 03/15/18 at 1139 by KIRK SPAULDING RN DR. THOMAS GAVE AN ORDER TO D/C TO [facility].
--- NOTE | 2018-03-15 11:35 | NUR ---
Pt. left the unit with belongings via ambulance and transported via a gurney. Left without distress and on stable condition. V/S taken : BP 133/83, NC 74, temp. 98.0, RR 18 and oxygen sat. 99%.
--- NOTE | 2018-03-15 14:48 | NUR ---
CAITIE called Kyle ([phone]), from [facility], and informed him that the pt was discharged to [facility] ([facility]).
--- NOTE | 2018-03-15 15:00 | NUR ---
CAITIE faxed a clearance packed to CJ from [facility] at the fax number: [phone].
--- NOTE | 2018-03-15 15:01 | NUR ---
CYRIL ([phone]) from [facility] called the SW and stated that the most recent psychiatric note stated that the pt has suicidal ideation that are active.
--- NOTE | 2018-03-15 15:02 | NUR ---
CAITIE and the nurse Keven (RN) called Dr. Suazo and received a note that the pt is not suicidal which the CAITIE faxed to from [facility] to the fax number: [phone].
--- NOTE | 2018-03-15 15:05 | NUR ---
Discharge Note: Pt was discharged to [facility] ([facility]) located at [address] [place] [address]; ([phone]). Pt will be transported via [facility] (Trip #[id number]) at 11AM. CAITIE informed Herminio ([phone]) from [facility] about this discharge. Upon discharge, the pt denied suicidal and homicidal ideation as well as auditory and visual hallucinations. The pt appeared to be in a euthymic mood with an anxious affect and due to her anxiety, the pt stated that she wanted to smoke once discharging. Pt was provided with three substance use referrals as well as two smoking cessation referrals. Pt will be under the care of her psychiatrist, Dr. Gamez, [place] at [address] [place] [address]; and her director of graduate admissions, Dr. Harmon, located at [address] [place] [address]; . Addendum: 03/15/18 at 1536 by MAX BLOOD Substance Abuse Referrals: [facility] [address] [facility] [place] [address] Tel. [facility] [address] [place] Provider Mental Health Treatment Tele-dermatology HIV Services Telemedicine Services [facility] [address] [place] [address] [facility] [id number] [place] [address] Smoking Cessation: [facility] 800-LUNGUSA [employer] [phone]
== END 2018-03-15 11:35 | DRG 885 ==
LOC: ER 13:50 → GPS 17:18
PROVIDERS: ADMIT Psychiatry & Neurology Psychiatry; ATTEND Registered Nurse
DX: F33.3 Major depressive disorder, recurrent, severe with psychotic symptoms (principal); E44.1 Mild protein-calorie malnutrition; R45.851 Suicidal ideations; F15.20 Other stimulant dependence, uncomplicated; F29 Unspecified psychosis not due to a substance or known physiological condition; F17.210 Nicotine dependence, cigarettes, uncomplicated; Z79.899 Other long term (current) drug therapy; E88.09 Other disorders of plasma-protein metabolism, not elsewhere classified; Z68.21 Body mass index [BMI] 21.0-21.9, adult; Z59.0 Homelessness
CPT/HCPCS: 36415; 70450-TC; 73140-TC; 73610-TC; 80048-TC; 80053-TC; 80061-TC; 80305; 81000-TC; 85025-TC; 87081-TC; A4606; G0480; Z7610

== ENCOUNTER 2018-07-04 05:06 | Inpatient (IN) | payer MEDICARE, OTHER ==
[~2018-07-04] VITALS: Ht 170.2 cm; Wt 65.8 kg
[~2018-07-04 05:06] MED LIST changes: +ARIP400S3; -DIPH1TAB28 PO; -ONDA4TAB8 SL
--- NOTE | 2018-07-04 06:00 | NUR ---
PT BIBSELF COMPLAINING OF ABDOMINAL PAIN AND DIARRHEA X1 DAY. PT DESCRIBES PAIN INTERMITTENT AND "CRAMPY". PT DENIES VOMITTING, SOB, CHEST PAIN, HEADACHE. PT AAOX4. RESPIRATIONS EVEN AND UNLABORED. SKIN WARM AND INTACT. VITAL SIGNS STABLE. NO ACUTE DISTRESS NOTED AT THIS TIME. WILL CONTINUE TO MONITOR.
--- NOTE | 2018-07-04 06:07 | NUR ---
MD AT BEDSIDE FOR EVALUATION
--- NOTE | 2018-07-04 06:15 | NUR ---
IV INITIATED RIGHT AC 18G. LABS DRAWN FROM SITE, SENT TO LAB. IV INTACT AND PATENT, PLACED ON SALINE LOCK
--- NOTE | 2018-07-04 06:17 | NUR ---
PT UNABLE TO PROVIDE URINE SAMPLE AT THIS TIME. MD SAWYER
[2018-07-04] MEDS ORDERED: IV NS 0.9% 1,000 ML BAG IV ONE (06:30)
[2018-07-04 06:40] LABS: BASOPHILS % (AUTO) 0.3 % (0.0-2.0); EOSINOPHILS % (AUTO) 2.3 % (0.0-6.0); HEMATOCRIT 44 % (33-45); HEMOGLOBIN 14.6 g/dL (11.5-14.8); LYMPHOCYTES # (AUTO) 0.7 /CMM (0.8-4.8); LYMPHOCYTES % (AUTO) 12.2 % (20.0-44.0); MEAN CORPUSCULAR HGB CONC 33 g/dl (31.0-36.0); MEAN CORPUSCULAR VOLUME 90 fL (82-100); MONOCYTES # (AUTO) 0.5 /CMM (0.1-1.30); MONOCYTES % (AUTO) 8.5 % (2.0-12.0); NEUTROPHILS # (AUTO) 4.2 /CMM (1.8-8.9); NEUTROPHILS % (AUTO) 76.7 % (43.0-81.0); PLATELET COUNT (AUTO) 167 /CMM (150-450); RED BLOOD CELL COUNT(AUTO) 4.89 MIL/uL (4.0-5.2); WHITE BLOOD COUNT (AUTO) 5.5 K/uL (4.3-11.0)
[2018-07-04 06:49] LABS: CALCIUM, SERUM 8.8 mg/dL (8.5-10.1); CARBON DIOXIDE 30 mmol/L (21-32); CHLORIDE 105 mmol/L (98-107); CREATININE 0.7 mg/dL (0.6-1.3); GLUCOSE 101 mg/dL (74-106); POTASSIUM 4.2 mmol/L (3.5-5.1); SODIUM SERUM 143 mmol/L (136-145); UREA NITROGEN, BLOOD 13 mg/dL (7-18)
[2018-07-04 06:55] LABS: ALANINE AMINOTRANSFERASE 28 U/L (12-78); ALBUMIN 4.1 g/dL (3.4-5.0); ALCOHOL, BLOOD < 3 mg/dL (0-0); ALKALINE PHOSPHATASE 94 U/L (46-116); ASPARTATE AMINOTRANSFERASE 27 U/L (15-37); BILIRUBIN,DIRECT 0.1 mg/dL (0.0-0.2); BILIRUBIN,TOTAL 0.5 mg/dL (0.2-1.0); TOTAL PROTEIN, SERUM 7.6 g/dL (6.4-8.2)
[2018-07-04 06:56] LABS: ACETAMINOPHEN 0 ug/ml (10-30); SALICYLATE 0.8 mg/dL (2.8-20.0)
--- NOTE | 2018-07-04 07:00 | NUR ---
URINE COLLECTED AND SENT TO LAB
--- NOTE | 2018-07-04 07:22 | NUR ---
GAVE REPORT TO LEANDER GLASS FOR TROY
[2018-07-04] MEDS ORDERED: LOPERAMIDE HCL (2 MG CAP) 2 MG CAPSULE PO ONE ×2 (07:28→07:30)
[2018-07-04 07:29] LABS: APPEARANCE,URINE SL CLOUDY (CLEAR); BILIRUBIN,URINE NEGATIVE (NEGATIVE); BLOOD, URINE TRACE Ery/uL (NEGATIVE); COLOR,URINE YELLOW (YELLOW); KETONES,URINE NEGATIVE (NEGATIVE); LEUKOCYTE ESTERASE ,URINE 1+ (NEGATIVE); NITRITE, URINE NEGATIVE (NEGATIVE); PROTEIN,URINE NEGATIVE (NEGATIVE); UGLUCOSE NEGATIVE (NEGATIVE); UROBILINOGEN,URINE 0.2 EU/dL (0.2)
[2018-07-04 07:32] LABS: BACTERIA,URINE 2+ /HPF (None Seen); MUCUS,URINE Few /LPF (None Seen); URINE AMORPHOUS URATE Few /HPF (None Seen)
--- NOTE | 2018-07-04 08:23 | NUR ---
GERTRUDE CHO [phone] WILL BE HERE BETWEEN 60-90 MIN.
[2018-07-04] MEDS ORDERED: CEPHALEXIN MONOHYDRATE 500 MG CAPSULE PO ONE ×2 (09:59→10:00)
--- NOTE | 2018-07-04 10:00 | NUR ---
TAMMIE ON SITE FOR PSYCH EVAL.
--- NOTE | 2018-07-04 10:41 | NUR ---
CALLED GPS AND REPORT GIVEN TO ARNOLDO GLASS FOR TROY.
--- NOTE | 2018-07-04 11:30 | NUR ---
NURSING ADMISSION NOTE: PT WAS ADMITTED TODAY AT 1130 FROM [facility] ER ON [address]. PER HOLD, "UPON FACE TO FACE CONTACT PT WAS ASSESSED FOR DTS/DTO. PT STATED 'I AM SEVERELY DEPRESSED, I HAVE BEEN THINKING ABOUT JUST OVERDOSING ON HEROIN TO END IT. I JUST DON'T SEE A PURPOSE IN LIVING ANYMORE'. PT ALSO REPORTED FEELING SAD, HELPLESS, HOPELESS, WORTHLESS, AND USELESS. PT WENT ON TO REPORT SHE FEELS THAT THE WORLD WOULD BE BETTER IF SHE WERE NOT LIVING ANYMORE". PT WAS BROUGHT TO THE UNIT VIA GURNEY. PT IS A&OX3, CALM, COOPERATIVE, PLEASANT, DENIES SI/HI AT THIS TIME. PT WAS COOPERATIVE WITH ADMISSION PROCESS. VS:137/96, 101,19, 100%RA, 98.1, 0/10 PAIN. SKIN INTACT. PT C/O DIARRHEA. HAS BEEN MADE AWARE. ADMISSION ORDERS WERE OBTAINED FROM DR. THOMAS AND DR. MULLINS. NO S/S OF DISTRESS NOTED. ALL NEEDS ATTENDED AND ANTICIPATED. WILL CONTINUE TO MONITOR Q15 MINS FOR SAFETY AND BEHAVIOR.
--- NOTE | 2018-07-04 11:49 | NUR ---
transferred patient to GPS via gurney accompanied by emt, in no apparent distress noted. going to GPS room 214.
[2018-07-04] MEDS ORDERED: Z GUARD REMEDY 2 OZ OINT TP PRN (13:00)
[2018-07-04] MEDS ORDERED: MAG HYDROX/AL HYDROX/SIMETH 30 ML UDC PO PRN ×2 (13:00→14:30)
[2018-07-04] MEDS ORDERED: ONDANSETRON HCL/PF 4 MG/2 ML VIAL IVP PRN (13:00)
[2018-07-04] MEDS ORDERED: HYDROCODONE/APAP 5/325MG 1 EACH TABLET PO PRN (13:00)
[2018-07-04] MEDS ORDERED: MAGNESIUM HYDROXIDE 30 ML UDC PO PRN ×2 (13:00→14:30)
[2018-07-04] MEDS ORDERED: LOPERAMIDE HCL (2 MG CAP) 2 MG CAPSULE PO PRN (13:00)
[2018-07-04] MEDS: ACETAMINOPHEN 325 MG TABLET PO PRN (13:33)
[2018-07-04] MEDS ORDERED: ACETAMINOPHEN 325 MG TABLET PO PRN (14:30)
[2018-07-04 16:00] VITALS: BP 110/74
[2018-07-04 20:14] VITALS: BP 132/74
[2018-07-04] MEDS: CEPHALEXIN MONOHYDRATE 500 MG CAPSULE PO SCH (21:15)
[2018-07-05 07:56] LABS: ALBUMIN 3.9 g/dL (3.4-5.0); BILIRUBIN,TOTAL 0.4 mg/dL (0.2-1.0); CALCIUM, SERUM 8.6 mg/dL (8.5-10.1); CREATININE 0.6 mg/dL (0.6-1.3); MAGNESIUM 2.2 mg/dL (1.8-2.4); PHOSPHORUS 3.9 mg/dL (2.5-4.9); POTASSIUM 4.5 mmol/L (3.5-5.1); TOTAL PROTEIN, SERUM 7.4 g/dL (6.4-8.2)
[2018-07-05 08:00] VITALS: BP 104/63
[2018-07-05] MEDS: CEPHALEXIN MONOHYDRATE 500 MG CAPSULE PO SCH ×2 (08:29→21:34)
[2018-07-05] MEDS: NICOTINE PATCH (14MG) 14 MG PATCH.TD24 TD SCH (08:30)
--- NOTE | 2018-07-05 12:06 | NUR ---
CAITIE spoke to the pt with Dr. Webber, psychiatrist, present. Pt's discharge plan to a SNF was discussed with her and she stated that she would accept placement. Dr. Webber encouraged the pt to stay at the facility that she is sent to and explained how her readmissions to the hospital and these facilities are going to affect her placement options. Pt's substance use was also discussed and the pt stated that she did take methamphetamines before admitting to the hospital. CAITIE informed her that she would be conducting a substance abuse intervention with her soon.
[2018-07-05] MEDS: SERTRALINE HCL 50 MG TABLET PO SCH (12:18)
--- NOTE | 2018-07-05 14:52 | NUR ---
CAITIE called Kyle ([phone]) from [facility] and left a message on his voicemail stating that the SW would like to speak to him regarding the pt's medications and living situation. CAITIE asked for him to return the call as soon as he can.
[2018-07-05 16:01] VITALS: BP 105/63
--- NOTE | 2018-07-05 16:15 | NUR ---
Initial Discharge Plan: Pt is currently homeless and does not have anyone in her life as a support system. Pt stated that she would like to be placed in a senior care facility. SW will work with the pt and the MD regarding appropriate discharge planning. SW will form a safe and proper discharge.
--- NOTE | 2018-07-05 19:15 | NUR ---
GPS RN NOTES RECEIVED ON BED SLEEPING,AROUSABLE TO VERBAL STIMULI,PER REPORT SHE'S HOMELESS.NO KIN ISSUES.ABLE TO VERBALIZED NEEDS.MONITOR FOR SAFETY,VISUAL CHECK Q 15 MINUTES PER PROTOCOL.NEEDS ANTICIPATED.
[2018-07-05 20:00] VITALS: BP 111/69
[2018-07-05] MEDS: TEMAZEPAM 15 MG CAPSULE PO PRN (21:34)
[2018-07-06 08:00] VITALS: BP 107/81
[2018-07-06] MEDS: CEPHALEXIN MONOHYDRATE 500 MG CAPSULE PO SCH ×2 (08:54→21:00)
[2018-07-06] MEDS: NICOTINE PATCH (14MG) 14 MG PATCH.TD24 TD SCH (08:55)
[2018-07-06] MEDS: SERTRALINE HCL 50 MG TABLET PO SCH (12:25)
[2018-07-06 16:00] VITALS: BP 98/64
[2018-07-06 20:00] VITALS: BP 101/57
[2018-07-06] MEDS: ZOLPIDEM TARTRATE 5 MG TABLET PO PRN (21:03)
--- NOTE | 2018-07-06 21:03 | NUR ---
AMBIEN 5 MG TAB PO GIVEN FOR SLEEP PER PATIENT'S REQUEST.
[2018-07-07 08:00] VITALS: BP 100/62
[2018-07-07] MEDS: CEPHALEXIN MONOHYDRATE 500 MG CAPSULE PO SCH ×2 (09:30→21:01)
[2018-07-07] MEDS: NICOTINE PATCH (14MG) 14 MG PATCH.TD24 TD SCH (09:30)
[2018-07-07] MEDS: SERTRALINE HCL 50 MG TABLET PO SCH (14:07)
[2018-07-07] MEDS: ACETAMINOPHEN 325 MG TABLET PO PRN (14:18)
--- NOTE | 2018-07-07 14:23 | NUR ---
given maalox and tylenol 650 mg po for stomach ache.
--- NOTE | 2018-07-07 15:40 | NUR ---
pt. asleep at this time.
[2018-07-07] MEDS: clonazePAM 0.5 MG TABLET PO PRN (15:48)
--- NOTE | 2018-07-07 15:49 | NUR ---
given klonopin for nerves.
[2018-07-07 16:00] VITALS: BP 100/57
[2018-07-07 20:00] VITALS: BP 106/51
[2018-07-07] MEDS: TEMAZEPAM 15 MG CAPSULE PO PRN (21:01)
--- NOTE | 2018-07-07 21:01 | NUR ---
TEMAZEPAM 15 MG CAP PO GIVEN FOR SLEEP.
[2018-07-08 08:00] VITALS: BP 90/57
[2018-07-08] MEDS: NICOTINE PATCH (14MG) 14 MG PATCH.TD24 TD SCH (08:30)
[2018-07-08] MEDS: SERTRALINE HCL 50 MG TABLET PO SCH (08:33)
[2018-07-08] MEDS: CEPHALEXIN MONOHYDRATE 500 MG CAPSULE PO SCH ×2 (08:33→20:36)
[2018-07-08 16:00] VITALS: BP 114/69
[2018-07-08] MEDS: clonazePAM 0.5 MG TABLET PO PRN (16:10)
[2018-07-08 20:10] VITALS: BP 95/61
[2018-07-08] MEDS: ZOLPIDEM TARTRATE 5 MG TABLET PO PRN (22:26)
[2018-07-09 08:00] VITALS: BP 133/66
[2018-07-09] MEDS: NICOTINE PATCH (14MG) 14 MG PATCH.TD24 TD SCH (08:48)
[2018-07-09] MEDS: SERTRALINE HCL 50 MG TABLET PO SCH (08:49)
[2018-07-09] MEDS: CEPHALEXIN MONOHYDRATE 500 MG CAPSULE PO SCH ×2 (09:30→21:47)
--- NOTE | 2018-07-09 10:59 | NUR ---
SW sent a referral to two care home facilities for the pt that are listed below: [facility] to the fax number: [phone] [facility] to the fax number: [phone]
--- NOTE | 2018-07-09 11:59 | NUR ---
Shellie ([phone]) from [facility] called and stated that the pt was accepted to their facility pending her discharge.
--- NOTE | 2018-07-09 12:00 | NUR ---
Aminah ([phone]) from [facility] called the SW and stated that the pt was accepted to their facility.
[2018-07-09] MEDS: clonazePAM 0.5 MG TABLET PO PRN (12:40)
--- NOTE | 2018-07-09 12:40 | NUR ---
RN-CO: Patient c/o anxiety, klonopin 0.5 mg po given.
[2018-07-09 16:00] VITALS: BP 113/76
[2018-07-09 20:00] VITALS: BP 100/68
[2018-07-09] MEDS: ZOLPIDEM TARTRATE 5 MG TABLET PO PRN (22:18)
[2018-07-10 08:00] VITALS: BP 123/63
[2018-07-10] MEDS: CEPHALEXIN MONOHYDRATE 500 MG CAPSULE PO SCH (08:33)
[2018-07-10] MEDS: NICOTINE PATCH (14MG) 14 MG PATCH.TD24 TD SCH (08:33)
[2018-07-10] MEDS ORDERED: SERTRALINE HCL 50 MG TABLET PO SCH (09:00)
--- NOTE | 2018-07-10 09:23 | NUR ---
RN-CO: DR THOMAS GAVE AN ORDER TO DISCONTINUE HOLD AND DISCHARGE PATEIT, NOTED. NO FAMILY TO CONTACT.
--- NOTE | 2018-07-10 10:06 | NUR ---
CAITIE called Shellie ([phone]) from [facility] and informed her that the pt will be discharging to her facility today.
--- NOTE | 2018-07-10 10:08 | NUR ---
SW conducted a substance abuse intervention with the pt due to her methamphetamine use.
--- NOTE | 2018-07-10 15:39 | NUR ---
Discharge Note: Pt was discharged to [facility] ([facility]) located at [address] [place] [address]; ([phone]). Pt was transported via [facility] (Trip #[id number]) at 5:15PM and will be taken to 34B. Upon discharge, the pt appeared to be in a euthymic mood with an anxious affect. She stated that she hopes this facility will be able to help her with her needs. She stated that she really wanted to give this placement a chance that she had not given before because she always gave in to her substance cravings. At discharge, the pt denied both suicidal and homicidal ideation as well as both auditory and visual hallucinations. Pt will be under the care of psychiatrist, Dr. Cabrera, located at [address] [address] [facility] [address] [address]; and his cte teacher, Dr. Gloria, located at [address] [facility] [address], [place] [address]; . Pt will continue to receive services to address his substance use with her psychiatrist and her cte teacher. Pt was provided with substance abuse referrals and smoking cessations referrals that are listed below. Substance Abuse Referrals: [facility] [address] [place] [address] Tel. [facility] Primary Care [facility] [address] [place] Provider Mental Health Treatment Tele-dermatology HIV Services Telemedicine Services [facility] [address] [place] [address] [facility] [address] [place] [address] Smoking Cessations Referrals: [employer] [facility] [employer] 800-LUNGUSA [employer] [phone]
[2018-07-10 16:00] VITALS: BP 110/75
--- NOTE | 2018-07-10 18:05 | NUR ---
GPS ROAD PRODUCTION GENERAL MANAGER NOTE: PT DISCHARGE TO [facility] AT [address], [place] [address]. PT IN STABLE CONDITION VSS, PT DENIES SI/HI, A/O X4 , COMPLIANT WITH MEDICATIONS AND TX. DR THOMAS ORDER DC HOLD DC PT TO SNF. EXIT CARE DONE PRINTED SIGN AND GIVEN TO PT. ALL BELONGINGS RETURNED TO PT,REPORT GIVEN TO FACILITY QUAN VELASQUEZ. PT SKIN INTACT.
--- NOTE | 2018-07-24 13:08 | NUR ---
15 Day Substance Abuse Follow Up: Pt is exempt from the substance abuse follow up to her discharge to a fpc facility called [facility].
== END 2018-07-10 18:00 | DRG 885 ==
LOC: ER 05:12 → GPS 11:29
PROVIDERS: ADMIT Psychiatry & Neurology Psychosomatic Medicine; ATTEND Psychiatry & Neurology Psychiatry
DX: F29 Unspecified psychosis not due to a substance or known physiological condition (principal); F01.50 Vascular dementia, unspecified severity, without behavioral disturbance, psychotic disturbance, mood disturbance, and anxiety; N39.0 Urinary tract infection, site not specified; R45.851 Suicidal ideations; F17.210 Nicotine dependence, cigarettes, uncomplicated; J44.9 Chronic obstructive pulmonary disease, unspecified; F32.9 Major depressive disorder, single episode, unspecified; F19.10 Other psychoactive substance abuse, uncomplicated; Z59.0 Homelessness; B96.89 Other specified bacterial agents as the cause of diseases classified elsewhere; R19.7 Diarrhea, unspecified; Z91.19 Patient's noncompliance with other medical treatment and regimen; F25.9 Schizoaffective disorder, unspecified
CPT/HCPCS: 36415; 80048-TC; 80053-TC; 80061-TC; 80076-TC; 80305; 81000-TC; 83735-TC; 84100-TC; 85025-TC; 87081-TC; 87086-TC; G0480; J7030

== ENCOUNTER 2018-09-26 07:24 | Inpatient (IN) | payer MEDICARE, OTHER ==
[~2018-09-26] VITALS: Ht 170.2 cm; Wt 73.0 kg
[~2018-09-26 07:24] MED LIST changes: -ARIP400S3; +ARIP400S3 IM
--- NOTE | 2018-09-26 07:24 | NUR ---
PT BBISELF FOR DIARRHEA, PT AAOX4, PT AMBULATORY, PT ON MONITOR, VSS, NAD NOTED, PENDING MD RYAN
[2018-09-26] MEDS ORDERED: ALBUTEROL FS 2.5 MG/3 ML VIAL.NEB ONE (07:51)
[2018-09-26] MEDS ORDERED: IPRATROPIUM NEB FS 0.5 MG/2.5 ML AMPUL.NEB ONE (07:51)
[2018-09-26] MEDS ORDERED: ALBUTEROL FS 2.5 MG/3 ML VIAL.NEB NEB ONE (08:00)
[2018-09-26] MEDS ORDERED: IPRATROPIUM NEB FS 0.5 MG/2.5 ML AMPUL.NEB NEB ONE (08:00)
[2018-09-26] MEDS ORDERED: IV NS 0.9% 1,000 ML IV ONE (08:00)
[2018-09-26 08:04] LABS: BASOPHILS % (AUTO) 0.5 % (0.0-2.0); EOSINOPHILS % (AUTO) 3.2 % (0.0-6.0); HEMATOCRIT 41 % (33-45); LYMPHOCYTES # (AUTO) 1.4 /CMM (0.8-4.8); LYMPHOCYTES % (AUTO) 23.5 % (20.0-44.0); MEAN CORPUSCULAR HGB CONC 34 g/dl (31.0-36.0); MEAN CORPUSCULAR VOLUME 88 fL (82-100); MONOCYTES # (AUTO) 0.4 /CMM (0.1-1.30); NEUTROPHILS % (AUTO) 65.8 % (43.0-81.0); PLATELET COUNT (AUTO) 195 /CMM (150-450); RED BLOOD CELL COUNT(AUTO) 4.68 MIL/uL (4.0-5.2); WHITE BLOOD COUNT (AUTO) 6.1 K/uL (4.3-11.0)
[2018-09-26 08:13] LABS: CARBON DIOXIDE 31 mmol/L (21-32); CHLORIDE 103 mmol/L (98-107); CREATININE 0.7 mg/dL (0.6-1.3); GLUCOSE 101 mg/dL (74-106); POTASSIUM 3.6 mmol/L (3.5-5.1); SODIUM SERUM 138 mmol/L (136-145); UREA NITROGEN, BLOOD 12 mg/dL (7-18)
[2018-09-26 08:18] LABS: ALANINE AMINOTRANSFERASE 17 U/L (12-78); BILIRUBIN,DIRECT 0.3 mg/dL (0.0-0.2); BILIRUBIN,TOTAL 0.4 mg/dL (0.2-1.0); CALCIUM, SERUM 8.6 mg/dL (8.5-10.1); TOTAL PROTEIN, SERUM 6.8 g/dL (6.4-8.2)
[2018-09-26 08:32] LABS: ALKALINE PHOSPHATASE 85 U/L (46-116); ASPARTATE AMINOTRANSFERASE 14 U/L (15-37)
[2018-09-26 09:48] LABS: APPEARANCE,URINE Clear (CLEAR); BILIRUBIN,URINE Negative (NEGATIVE); BLOOD, URINE Negative Ery/uL (NEGATIVE); COLOR,URINE Yellow (YELLOW); KETONES,URINE Negative (NEGATIVE); LEUKOCYTE ESTERASE ,URINE Negative (NEGATIVE); NITRITE, URINE Negative (NEGATIVE); PROTEIN,URINE Negative (NEGATIVE); UGLUCOSE Negative (NEGATIVE); UROBILINOGEN,URINE 0.2 EU/dL (0.2)
[2018-09-26] MEDS ORDERED: SERT100T PO (11:22)
--- NOTE | 2018-09-26 11:49 | NUR ---
REPORT GIVEN TO KATHRYN GLASS FOR TROY; ROOM 217
[2018-09-26] MEDS ORDERED: MAGNESIUM HYDROXIDE 30 ML UDC PO PRN (15:00)
[2018-09-26] MEDS ORDERED: MAG HYDROX/AL HYDROX/SIMETH 30 ML UDC PO PRN (15:00)
--- NOTE | 2018-09-26 15:00 | NUR ---
APARTMENT MAINTENANCE NOTES PATIENT ADMITTED FROM ER FEMALE 68Y/OLD ON Dx OF PSYCHOSIS NOS. PATIENT A/O X3, WITH VAGU THOUGHTS OF DTS, BUT HAS NO PLAN. PATIENT CALM, COOPERATIVE, REDIRECTABLE. PATIENT AMBULATORY SELF CARE. SKIN ASSESSMENT DONE INTACT, PICTURE TAKEN ON LEFT FOOT. PATIENT WAS COMPLAINING OF HEADACHE. V/S TAKEN BP-149/96, P-90, R-18,O2-97 ROOM AIR, T-98.1. PATIENT SIGN PAPERWORK. BELONGING AND CONTRABAND CHECKED. DR THOMAS, AND DR DE LA ROSA AWARE OF NEW PATIENT, AND MEDICATION. PATIENT HAS NO FAMILY TO NOTIFY. CALL ROBERT NEAR TO REACH. SAFETY PRECAUTION MAINTAINED ALL THE TIME.
[2018-09-26 16:00] VITALS: BP 149/96
[2018-09-26] MEDS: clonazePAM 0.5 MG TABLET PO PRN (17:41)
[2018-09-26] MEDS: ACETAMINOPHEN 325 MG TABLET PO PRN (17:41)
--- NOTE | 2018-09-26 17:44 | NUR ---
RN NOTES ADMINISTERED TYLENOL 650 MG PO NH FOR HEADACHE, KLONOPIN 0.5 MG PO PRN FOR ANXIETY, V/S TAKEN BP 149/96, P-90, CALL ROBERT NEAR TO REACH. SAFETY PRECAUTION MAINTAINED ALL THE TIME.
[2018-09-26] MEDS ORDERED: PRIM250T32 PO (19:22)
[2018-09-26 20:41] VITALS: BP 116/67
[2018-09-27 08:00] VITALS: BP 110/70
--- NOTE | 2018-09-27 08:00 | NUR ---
RECEIVED PATIENT IN BED AWAKE, A/OX3, IN NO APPARENT DISTRESS NOTED. PATIENT IS CALM, COOPERATIVE, DEPRESSED, MED COMPLIANT.DENIES SI/HI OR HALLUCINATIONS AT HIS TIME. NO S/SX OF PAIN OR DISCOMFORT NOTED. SAFETY AND FALL PRECAUTIONS IMPLEMENTED. WILL CONTINUE TO MONITOR FOR SAFETY AND BEHAVIOR.
[2018-09-27 08:12] LABS: ALBUMIN 3.5 g/dL (3.4-5.0); BILIRUBIN,TOTAL 0.4 mg/dL (0.2-1.0); CALCIUM, SERUM 8.6 mg/dL (8.5-10.1); CHOLESTEROL 174 mg/dL (<200); CREATININE 0.5 mg/dL (0.6-1.3); HDL CHOLESTEROL 44 mg/dL (40-60); LDL 122 mg/dL (0-99); POTASSIUM 3.9 mmol/L (3.5-5.1); TOTAL PROTEIN, SERUM 6.5 g/dL (6.4-8.2); TRIGLYCERIDES 112 mg/dL (30-150)
[2018-09-27] MEDS: NICOTINE PATCH (14MG) 14 MG PATCH.TD24 TD SCH (09:23)
[2018-09-27] MEDS: PRIMIDONE 250 MG TABLET PO SCH ×2 (09:23→16:25)
[2018-09-27] MEDS: ARIPIPRAZOLE 5 MG TABLET PO SCH (10:58)
[2018-09-27] MEDS: SERTRALINE HCL 50 MG TABLET PO SCH (10:58)
--- NOTE | 2018-09-27 11:24 | NUR ---
WOUND CARE CONSULT:PATIENT PRESENT WITH LT FOOT SCAB ON ADMISSION,RECOMMENDED TO DO HEELS FLOATED ,PATIENT AMBULATORY, GABE SCALE 23,PLAN OF CARE DISCUSSED WITH NURSING STAFF, WILL SEE PRN Addendum: 09/27/18 at 1129 by CAMILA STATON RN Amended: Links added.
[2018-09-27 16:00] VITALS: BP 100/68
[2018-09-27 20:00] VITALS: BP 131/73
[2018-09-28] MEDS: ACETAMINOPHEN 325 MG TABLET PO PRN (03:33)
--- NOTE | 2018-09-28 03:34 | NUR ---
C/O HEADACHE, TYLENOL 650 MG TAB PO GIVEN.
[2018-09-28 08:00] VITALS: BP 147/81
[2018-09-28] MEDS: PRIMIDONE 250 MG TABLET PO SCH ×2 (08:28→16:40)
[2018-09-28] MEDS: SERTRALINE HCL 50 MG TABLET PO SCH (08:28)
[2018-09-28] MEDS: ARIPIPRAZOLE 5 MG TABLET PO SCH (08:28)
[2018-09-28] MEDS: NAPROXEN 500 MG TABLET PO PRN (08:29)
[2018-09-28] MEDS: NICOTINE PATCH (14MG) 14 MG PATCH.TD24 TD SCH (08:30)
--- NOTE | 2018-09-28 08:59 | NUR ---
Initial Discharge Plan: Pt is currently homeless and does not have a discharge location at this time. Per pt, she would like to be placed in a nursing home facility just as it has occurred each time she has been admitted previously. SW will work with the pt and the MD regarding appropriate discharge planning. SW will form a safe and appropriate discharge.
[2018-09-28 16:18] VITALS: BP 115/72
--- NOTE | 2018-09-28 19:45 | NUR ---
RN INITIAL NOTES: RESTING IN BED, PT A/O X3, CALM AND COOPERATIVE, INTERACTS WHEN ENGAGED, BUT MOST OF THE TIME WITHDRAWN AND ISOLATIVE, DENIES ANY SI/HI AT THIS TIME, MINIMAL INTERACTION, CAN BE REDIRECTED, MED COMPLIANT, SAFETY PRECAUTIONS FOR FALL INITIATED, BED BRAKE ENGAGED, SIDE RAILS UP X2 FOR SAFETY, WILL MONITOR [id number] FOR SAFETY AND ANY CHANGES IN BEHAVIOR.
[2018-09-28 20:00] VITALS: BP 121/72
[2018-09-29 08:00] VITALS: BP 128/85
[2018-09-29] MEDS: NICOTINE PATCH (14MG) 14 MG PATCH.TD24 TD SCH (08:33)
[2018-09-29] MEDS: PRIMIDONE 250 MG TABLET PO SCH ×2 (08:33→16:58)
[2018-09-29] MEDS: ARIPIPRAZOLE 5 MG TABLET PO SCH (08:33)
[2018-09-29] MEDS: SERTRALINE HCL 50 MG TABLET PO SCH (08:33)
[2018-09-29 16:00] VITALS: BP 100/65
[2018-09-29 20:00] VITALS: BP 116/55
[2018-09-29] MEDS: clonazePAM 0.5 MG TABLET PO PRN (20:12)
[2018-09-30 08:00] VITALS: BP 94/60
[2018-09-30] MEDS: PRIMIDONE 250 MG TABLET PO SCH ×2 (09:00→18:03)
[2018-09-30] MEDS: ARIPIPRAZOLE 5 MG TABLET PO SCH (09:00)
[2018-09-30] MEDS: SERTRALINE HCL 50 MG TABLET PO SCH (09:00)
[2018-09-30] MEDS: NICOTINE PATCH (14MG) 14 MG PATCH.TD24 TD SCH (09:00)
[2018-09-30 16:00] VITALS: BP 105/55
[2018-09-30] MEDS: clonazePAM 0.5 MG TABLET PO PRN (18:13)
--- NOTE | 2018-09-30 18:14 | NUR ---
RN NOTE:PATIENT C/O ANXIETY MEDICATED WITH KLONOPIN 0.5MG FOR ANXIETY WILL CONTINUE TO MONITOR .
--- NOTE | 2018-09-30 19:30 | NUR ---
GPS RN NOTE, RECEIVED PATIENT AWAKE AND IN ROOM NO S/S OR COMPLAINTS OF PAIN AT THIS TIME. PATIENT IS DISPLAYING NO S/S OF APPARENT DISTRESS AT THIS TIME. PATIENT BREATHING IS UNLABORED WITH EQUAL RISE AND FALL OF THE CHEST. PATIENT IS ALERT AND ORIENTED X 3 ON ROOM AIR WITH A SPO2 OF 98%. PATIENT IS MED COMPLIANT, DISORGANIZED, DEPRESSED, ISOLATIVE, COOPERATIVE, AND NEEDS REORIENTATION. PATIENT DENIES SUICIDE AND HOMICIDAL IDEATIONS AT THIS TIME. PATIENT ASSISTED WITH TURNING AND REPOSITIONING Q2HR AND PRN FOR COMFORT AND CIRCULATION. PATIENT HAS NO NEEDS AT THIS TIME. PATIENT EDUCATED ON THE USE OF THE CALL ROBERT. PATIENT BED SIDE RAILS ARE UP X 2 FOR SAFETY, BED IS LOCKED AND LOW. WILL CONTINUE TO MONITOR AND MAINTAIN SAFETY Q15 MIN WITH THE HELP OF STAFF.
--- NOTE | 2018-09-30 20:00 | NUR ---
GPS RN NOTE, PATIENT REFUSED TO HAVE PICTURES TAKEN TODAY. OFFERED THREE TIMES AND STILL PATIENT REFUSED STATING, " I DON'T FELL COMFORTABLE HAVE PICTURES TAKEN ". EDUCATED PATIENT ON HOSPITAL POLICY FOR TAKING PICTURES AND DOING SKIN EXAM. WILL CONTINUE TO MONITOR THIS PATIENT.
[2018-09-30 20:02] VITALS: BP 106/69
[2018-09-30] MEDS: TEMAZEPAM 7.5 MG CAPSULE PO PRN (21:21)
--- NOTE | 2018-09-30 21:21 | NUR ---
GPS RN NOTE, PATIENT HAS A COMPLAINT OF NOT BEING ABLE TO SLEEP AND IS REQUESTING RESTORIL AT THIS TIME. PATIENT VITAL SIGNS ARE STABLE. GAVE RESTORIL 15 MG PO HS PRN ORDERED. WILL REASSESS FOR INSOMNIA AND I WILL CONTINUE TO MONITOR THIS PATIENT.
[2018-10-01 08:00] VITALS: BP 136/69
[2018-10-01] MEDS: ARIPIPRAZOLE 5 MG TABLET PO SCH (08:36)
[2018-10-01] MEDS: SERTRALINE HCL 50 MG TABLET PO SCH (08:36)
[2018-10-01] MEDS: PRIMIDONE 250 MG TABLET PO SCH ×2 (08:36→16:28)
[2018-10-01] MEDS: NICOTINE PATCH (14MG) 14 MG PATCH.TD24 TD SCH (08:36)
[2018-10-01] MEDS: ATORVASTATIN 10 MG TABLET PO SCH (08:37)
[2018-10-01 16:00] VITALS: BP 100/61
[2018-10-01] MEDS: clonazePAM 0.5 MG TABLET PO PRN (16:41)
--- NOTE | 2018-10-01 19:30 | NUR ---
GPS RN NOTE, RECEIVED PATIENT AWAKE AND IN ROOM NO S/S OR COMPLAINTS OF PAIN AT THIS TIME. PATIENT IS DISPLAYING NO S/S OF APPARENT DISTRESS AT THIS TIME. PATIENT BREATHING IS UNLABORED WITH EQUAL RISE AND FALL OF THE CHEST. PATIENT IS ALERT AND ORIENTED X 3 ON ROOM AIR WITH A SPO2 OF 96%. PATIENT IS MED COMPLIANT, DISORGANIZED, DEPRESSED, ISOLATIVE, COOPERATIVE, AND NEEDS REORIENTATION. PATIENT DENIES SUICIDE AND HOMICIDAL IDEATIONS AT THIS TIME. PATIENT ASSISTED WITH TURNING AND REPOSITIONING Q2HR AND PRN FOR COMFORT AND CIRCULATION. PATIENT HAS NO NEEDS AT THIS TIME. PATIENT EDUCATED ON THE USE OF THE CALL ROBERT. PATIENT BED SIDE RAILS ARE UP X 2 FOR SAFETY, BED IS LOCKED AND LOW. WILL CONTINUE TO MONITOR AND MAINTAIN SAFETY Q15 MIN WITH THE HELP OF STAFF.
[2018-10-01 20:29] VITALS: BP 92/56
[2018-10-01 21:58] VITALS: BP 106/62
[2018-10-01] MEDS: TEMAZEPAM 7.5 MG CAPSULE PO PRN (22:01)
[2018-10-02 08:00] VITALS: BP 107/59
[2018-10-02] MEDS: PRIMIDONE 250 MG TABLET PO SCH ×2 (09:02→16:40)
[2018-10-02] MEDS: ARIPIPRAZOLE 5 MG TABLET PO SCH (09:02)
[2018-10-02] MEDS: ATORVASTATIN 10 MG TABLET PO SCH (09:02)
[2018-10-02] MEDS: NICOTINE PATCH (14MG) 14 MG PATCH.TD24 TD SCH (09:02)
[2018-10-02] MEDS: SERTRALINE HCL 50 MG TABLET PO SCH (09:02)
--- NOTE | 2018-10-02 13:02 | NUR ---
CAITIE faxed a referral to [facility] with attention to Elvin to the fax number: [phone].
[2018-10-02 16:00] VITALS: BP 105/64
--- NOTE | 2018-10-02 16:18 | NUR ---
Shellie ([phone]) from [facility] stated that the pt was accepted to their facility.
--- NOTE | 2018-10-02 16:19 | NUR ---
Pt was observed to be isolating and stated that she did not want to participate in the supportive counseling with the pt.
[2018-10-02 20:09] VITALS: BP 107/54
--- NOTE | 2018-10-02 20:16 | NUR ---
GPS RN NOTE, PATIENT HAS A COMPLAINT OF CONSTIPATION AND IS REQUESTING MILK OF MAGNESIA AT THIS TIME. PATIENT VITAL SIGNS ARE STABLE. GAVE MILK OF MAGNESIA 30 ML PO Q12HR PRN ORDERED. WILL REASSESS FOR CONSTIPATION AND I WILL CONTINUE TO MONITOR THIS PATIENT.
[2018-10-03 08:00] VITALS: BP 100/60
[2018-10-03] MEDS: SERTRALINE HCL 50 MG TABLET PO SCH (09:01)
[2018-10-03] MEDS: PRIMIDONE 250 MG TABLET PO SCH ×2 (09:01→17:26)
[2018-10-03] MEDS: NICOTINE PATCH (14MG) 14 MG PATCH.TD24 TD SCH (09:01)
[2018-10-03] MEDS: ARIPIPRAZOLE 5 MG TABLET PO SCH (09:01)
[2018-10-03] MEDS: ATORVASTATIN 10 MG TABLET PO SCH (09:01)
[2018-10-03 16:00] VITALS: BP 112/81
[2018-10-03] MEDS: clonazePAM 0.5 MG TABLET PO PRN (17:40)
--- NOTE | 2018-10-03 17:41 | NUR ---
RN GPS NOTES PATIENT ASKED FOR CLONAZEPAM 0.5 MG PRN. LAST GIVEN WAS 2 DAYS AGO. VS STABLE
[2018-10-03 20:00] VITALS: BP 108/61
[2018-10-03] MEDS: TEMAZEPAM 7.5 MG CAPSULE PO PRN (23:56)
[2018-10-04 08:00] VITALS: BP 114/69
[2018-10-04] MEDS: NICOTINE PATCH (14MG) 14 MG PATCH.TD24 TD SCH (09:25)
[2018-10-04] MEDS: PRIMIDONE 250 MG TABLET PO SCH ×2 (09:25→16:30)
[2018-10-04] MEDS: ATORVASTATIN 10 MG TABLET PO SCH (09:25)
[2018-10-04] MEDS: ARIPIPRAZOLE 5 MG TABLET PO SCH (09:25)
[2018-10-04] MEDS: SERTRALINE HCL 50 MG TABLET PO SCH (09:27)
--- NOTE | 2018-10-04 14:51 | NUR ---
SW conducted a substance abuse intervention with the pt regarding her recent methamphetamine use.
[2018-10-04 16:16] VITALS: BP 119/78
[2018-10-04] MEDS: clonazePAM 0.5 MG TABLET PO PRN (17:59)
[2018-10-04 20:00] VITALS: BP 121/74
[2018-10-05 08:00] VITALS: BP 102/69
[2018-10-05] MEDS: NICOTINE PATCH (14MG) 14 MG PATCH.TD24 TD SCH (08:23)
[2018-10-05] MEDS: PRIMIDONE 250 MG TABLET PO SCH (08:23)
[2018-10-05] MEDS: SERTRALINE HCL 50 MG TABLET PO SCH (08:23)
[2018-10-05] MEDS: NAPROXEN 500 MG TABLET PO PRN (08:23)
[2018-10-05] MEDS: ATORVASTATIN 10 MG TABLET PO SCH (08:23)
[2018-10-05] MEDS: ARIPIPRAZOLE 5 MG TABLET PO SCH (08:23)
--- NOTE | 2018-10-05 08:43 | NUR ---
CAITIE faxed a clearance note and a medication consent to [facility] with attention to Kelin to the fax number: [phone].
--- NOTE | 2018-10-05 11:00 | NUR ---
RN-CO:DR JARAMILLO ORDERED TO DISCONTINUE HOLD AND DISCHARGE PATIENT TO SNF. PATIENT REMAINS CALM AND COOPERATIVE TO CARE. DENIED SI/HI. DENIED AH/VH. AFFECT IS APPROPRIATE. ORLANDO TINSLEY NP MEDICALLY CLEARED THE PATIENT FOR DISCHARGE.
[2018-10-05] MEDS: clonazePAM 0.5 MG TABLET PO PRN (12:29)
--- NOTE | 2018-10-05 15:10 | NUR ---
Discharge Note: Pt was discharged to [facility] ([facility]) located at [address] [place] [address]; ([phone]). Giovanni (Trip #[phone]) at 3PM and will be taken to Rm 34B. Upon discharge, the pt appeared to be in a euthymic mood with an anxious affect. She stated that she hopes this facility will be able to help her with her needs. She stated that she really wanted to give this placement a chance that she had not given before because she always gave in to her substance cravings. At discharge, the pt denied both suicidal and homicidal ideation as well as both auditory and visual hallucinations. Pt will be under the care of psychiatrist, Dr. Cabrera, located at [address], [place] [address]; and his bell neck hammerer, Dr. Gloria, located at [address], [place] [address]; . Pt will continue to receive services to address his substance use with her psychiatrist and her bell neck hammerer. Pt was provided with substance abuse referrals and smoking cessations referrals that are listed below. Substance Abuse Referrals: [facility] [address] [place] [address] Tel. [facility] [address] [place] Provider Mental Health Treatment Tele-dermatology HIV Services [facility] [address] [place] [address] [facility] [address] [place] [address]
--- NOTE | 2018-10-05 15:11 | NUR ---
Pt signed the homeless waiver checklist and was provided with homeless referrals as well as substance use referrals.
--- NOTE | 2018-10-05 15:24 | NUR ---
REPORT CALLED TO LUDIN GLASS ( [facility] )
--- NOTE | 2018-10-05 15:25 | NUR ---
PATIENT CLEARED FOR DISCHARGE BY MD. PATIENT AWAKE A/O X 4 , CALM AND MED COMPLIANT, VS ARE STABLE ON ROOM AIR.SKIN INTACT. NO DISTRESS NOTED. PATIENT DENIES ANY SUICIDAL OR HOMICIDAL THOUGHTS. PATIENT PICKED UP BY ADRIANNA .
--- NOTE | 2018-10-18 15:49 | NUR ---
15 Day Substance Abuse Follow Up: Pt is exempt from the follow up due to her discharge to a nursing home facility called [facility].
== END 2018-10-05 15:15 | DRG 885 ==
LOC: ER 07:25 → GPS 14:00
PROVIDERS: ADMIT Psychiatry & Neurology Psychiatry; ATTEND Nurse Practitioner Acute Care
DX: F33.3 Major depressive disorder, recurrent, severe with psychotic symptoms (principal); J44.9 Chronic obstructive pulmonary disease, unspecified; F29 Unspecified psychosis not due to a substance or known physiological condition; Z73.6 Limitation of activities due to disability; F19.10 Other psychoactive substance abuse, uncomplicated; E78.5 Hyperlipidemia, unspecified; G47.00 Insomnia, unspecified; K52.9 Noninfective gastroenteritis and colitis, unspecified; F17.200 Nicotine dependence, unspecified, uncomplicated; Z59.0 Homelessness; Z79.899 Other long term (current) drug therapy
CPT/HCPCS: 36415; 71045-TC; 80048-TC; 80053-TC; 80061-TC; 80076-TC; 80305; 81000-TC; 84484-TC; 85025-TC; 87081-TC; J7030

== ENCOUNTER 2018-11-20 06:48 | Inpatient (IN) | payer MEDICARE, OTHER ==
[~2018-11-20] VITALS: Ht 170.2 cm; Wt 77.1 kg
[~2018-11-20 06:48] MED LIST changes: +PRIM250T32 PO; +SERT100T PO
[2018-11-20] MEDS ORDERED: IBUPROFEN 600 MG TABLET PO ONE ×2 (07:00→07:06)
[2018-11-20 08:34] LABS: BASOPHILS # (AUTO) 0.1 /CMM (0.0-0.2); BASOPHILS % (AUTO) 0.8 % (0.0-2.0); EOSINOPHILS % (AUTO) 3.7 % (0.0-6.0); HEMATOCRIT 39 % (33-45); HEMOGLOBIN 13.3 g/dL (11.5-14.8); LYMPHOCYTES # (AUTO) 1.7 /CMM (0.8-4.8); LYMPHOCYTES % (AUTO) 22.1 % (20.0-44.0); MEAN CORPUSCULAR HGB CONC 34 g/dl (31.0-36.0); MEAN CORPUSCULAR VOLUME 89 fL (82-100); MONOCYTES # (AUTO) 0.7 /CMM (0.1-1.30); NEUTROPHILS % (AUTO) 64.4 % (43.0-81.0); PLATELET COUNT (AUTO) 158 /CMM (150-450); RED BLOOD CELL COUNT(AUTO) 4.37 MIL/uL (4.0-5.2); WHITE BLOOD COUNT (AUTO) 7.7 K/uL (4.3-11.0)
[2018-11-20 08:42] LABS: CALCIUM, SERUM 8.5 mg/dL (8.5-10.1); CARBON DIOXIDE 27 mmol/L (21-32); CHLORIDE 105 mmol/L (98-107); CREATININE 0.6 mg/dL (0.6-1.3); GLUCOSE 108 mg/dL (74-106); POTASSIUM 3.6 mmol/L (3.5-5.1); SODIUM SERUM 140 mmol/L (136-145); UREA NITROGEN, BLOOD 9 mg/dL (7-18)
[2018-11-20 08:47] LABS: ACETAMINOPHEN 0 ug/ml (10-30); ALANINE AMINOTRANSFERASE 17 U/L (12-78); ALBUMIN 3.6 g/dL (3.4-5.0); ALCOHOL, BLOOD < 3 mg/dL (0-0); ALKALINE PHOSPHATASE 77 U/L (46-116); ASPARTATE AMINOTRANSFERASE 12 U/L (15-37); BILIRUBIN,TOTAL 0.3 mg/dL (0.2-1.0); SALICYLATE 3.3 mg/dL (2.8-20.0); TOTAL PROTEIN, SERUM 6.6 g/dL (6.4-8.2)
[2018-11-20] MEDS ORDERED: ALBU18HF2 IH (09:01)
[2018-11-20 11:17] VITALS: BP 116/78
[2018-11-20 12:00] VITALS: BP 106/62
[2018-11-20] MEDS: SERTRALINE HCL 50 MG TABLET PO SCH (14:00)
[2018-11-20] MEDS: ARIPIPRAZOLE 5 MG TABLET PO SCH (14:00)
[2018-11-20 16:00] VITALS: BP 106/65
[2018-11-20] MEDS ORDERED: ACETAMINOPHEN 325 MG TABLET PO PRN (17:30)
[2018-11-20] MEDS ORDERED: IBUPROFEN 600 MG TABLET PO PRN (17:30)
[2018-11-20] MEDS ORDERED: Z GUARD REMEDY 2 OZ OINT TP PRN (17:30)
[2018-11-20] MEDS ORDERED: ZOLPIDEM TARTRATE 5 MG TABLET PO PRN (17:30)
[2018-11-20] MEDS ORDERED: ONDANSETRON HCL/PF 4 MG/2 ML VIAL IVP PRN (17:30)
[2018-11-20] MEDS: ENOXAPARIN SODIUM 40 MG/0.4 ML DISP.SYRIN SQ SCH (17:59)
[2018-11-20] MEDS: CARBAMAZEPINE 200 MG TABLET PO SCH (17:59)
[2018-11-20] MEDS: KETOROLAC TROMETHAMINE INJ 30 MG/ML VIAL IV PRN (18:13)
[2018-11-20] MEDS: PRIMIDONE 50 MG TABLET PO SCH (18:15)
[2018-11-20] MEDS: IV NS 0.9% 1,000 ML IV PRN (19:11)
[2018-11-20] MEDS ORDERED: ALBUTEROL FS 2.5 MG/0.5 ML VIAL.NEB NEB PRN (19:30)
[2018-11-20 20:00] VITALS: BP_SYST 132; BP_DIAS 63; BP_DIAS 64
[2018-11-21 04:00] VITALS: BP 105/56
[2018-11-21 06:18] LABS: BASOPHILS % (AUTO) 0.4 % (0.0-2.0); EOSINOPHILS % (AUTO) 4.6 % (0.0-6.0); HEMATOCRIT 38 % (33-45); HEMOGLOBIN 12.8 g/dL (11.5-14.8); LYMPHOCYTES # (AUTO) 1.9 /CMM (0.8-4.8); LYMPHOCYTES % (AUTO) 35.2 % (20.0-44.0); MEAN CORPUSCULAR HGB CONC 34 g/dl (31.0-36.0); MEAN CORPUSCULAR VOLUME 88 fL (82-100); MONOCYTES # (AUTO) 0.5 /CMM (0.1-1.30); MONOCYTES % (AUTO) 9.5 % (2.0-12.0); NEUTROPHILS # (AUTO) 2.7 /CMM (1.8-8.9); NEUTROPHILS % (AUTO) 50.3 % (43.0-81.0); PLATELET COUNT (AUTO) 151 /CMM (150-450); RED BLOOD CELL COUNT(AUTO) 4.27 MIL/uL (4.0-5.2); WHITE BLOOD COUNT (AUTO) 5.4 K/uL (4.3-11.0)
[2018-11-21 06:25] LABS: CREATININE 0.5 mg/dL (0.6-1.3); MAGNESIUM 1.9 mg/dL (1.8-2.4); PHOSPHORUS 3.4 mg/dL (2.5-4.9)
[2018-11-21 06:29] LABS: THYROID STIMULATING HORMONE 1.055 uIU/mL (0.358-3.74)
[2018-11-21 08:00] VITALS: BP 148/80
[2018-11-21] MEDS: PRIMIDONE 50 MG TABLET PO SCH ×2 (08:11→17:01)
[2018-11-21] MEDS: ARIPIPRAZOLE 5 MG TABLET PO SCH (08:11)
[2018-11-21] MEDS: PANTOPRAZOLE 40 MG TABLET.DR PO SCH (08:11)
[2018-11-21] MEDS: KETOROLAC TROMETHAMINE INJ 30 MG/ML VIAL IV PRN ×2 (08:12→21:32)
[2018-11-21] MEDS: CARBAMAZEPINE 200 MG TABLET PO SCH ×3 (08:14→17:01)
[2018-11-21] MEDS: SERTRALINE HCL 50 MG TABLET PO SCH (08:22)
[2018-11-21] MEDS ORDERED: SERTRALINE HCL 25 MG TABLET PO SCH (09:00)
[2018-11-21 16:00] VITALS: BP 106/58
[2018-11-21 20:00] VITALS: BP 121/61
[2018-11-21] MEDS: ENOXAPARIN SODIUM 40 MG/0.4 ML DISP.SYRIN SQ SCH (21:04)
[2018-11-22] MEDS: IV NS 0.9% 1,000 ML IV PRN (01:34)
[2018-11-22] MEDS: PANTOPRAZOLE 40 MG TABLET.DR PO SCH (06:33)
[2018-11-22 08:00] VITALS: BP_SYST 121; BP_SYST 132; BP_DIAS 76; BP_DIAS 86
[2018-11-22] MEDS: CARBAMAZEPINE 200 MG TABLET PO SCH ×3 (09:18→18:07)
[2018-11-22] MEDS: ARIPIPRAZOLE 5 MG TABLET PO SCH (09:18)
[2018-11-22] MEDS: SERTRALINE HCL 50 MG TABLET PO SCH (09:18)
[2018-11-22] MEDS: PRIMIDONE 50 MG TABLET PO SCH ×2 (09:18→18:07)
[2018-11-22 16:00] VITALS: BP 132/76
[2018-11-22] MEDS: ENOXAPARIN SODIUM 40 MG/0.4 ML DISP.SYRIN SQ SCH (21:33)
[2018-11-23] VITALS: BP 99/73
[2018-11-23 08:00] VITALS: BP 136/72
[2018-11-23] MEDS: PANTOPRAZOLE 40 MG TABLET.DR PO SCH (08:45)
[2018-11-23] MEDS: ARIPIPRAZOLE 5 MG TABLET PO SCH (08:45)
[2018-11-23] MEDS: CARBAMAZEPINE 200 MG TABLET PO SCH ×3 (08:46→16:43)
[2018-11-23] MEDS: SERTRALINE HCL 50 MG TABLET PO SCH (08:46)
[2018-11-23] MEDS: PRIMIDONE 50 MG TABLET PO SCH ×2 (08:58→16:43)
[2018-11-23] MEDS: KETOROLAC TROMETHAMINE INJ 30 MG/ML VIAL IV PRN (11:52)
[2018-11-23 16:00] VITALS: BP 115/70
== END 2018-11-23 17:40 | DRG 563 ==
LOC: ER 06:48 → MEDSG1 10:04
PROVIDERS: ADMIT Nurse Practitioner Acute Care; ATTEND Nurse Practitioner Acute Care
DX: S82.831A Other fracture of upper and lower end of right fibula, initial encounter for closed fracture (principal); R45.851 Suicidal ideations; F31.5 Bipolar disorder, current episode depressed, severe, with psychotic features; S92.311A Displaced fracture of first metatarsal bone, right foot, initial encounter for closed fracture; J44.9 Chronic obstructive pulmonary disease, unspecified; Z59.0 Homelessness; S92.331A Displaced fracture of third metatarsal bone, right foot, initial encounter for closed fracture; F17.200 Nicotine dependence, unspecified, uncomplicated; Z79.899 Other long term (current) drug therapy; G25.0 Essential tremor; Z79.51 Long term (current) use of inhaled steroids; S09.90XA Unspecified injury of head, initial encounter; W01.0XXA Fall on same level from slipping, tripping and stumbling without subsequent striking against object, initial encounter; Y92.9 Unspecified place or not applicable
CPT/HCPCS: 36415; 73610-TC; 73630-TC; 80048-TC; 80061-TC; 80076-TC; 83735-TC; 84100-TC; 84443-TC; 85025-TC; 87081-TC; 93307-TC; 97116-TC; 97530-TC; G0378; G0480; J1650; J1885; J7030

== ENCOUNTER 2019-01-31 22:42 | Emergency (ER) | payer MEDICARE, OTHER ==
[~2019-01-31] VITALS: Ht 170.2 cm; Wt 72.6 kg
[~2019-01-31 22:42] MED LIST changes: +ALBU18HF2 IH; -NAPR-1009 PO
[2019-01-31 22:49] VITALS: BP 137/76
--- NOTE | 2019-01-31 23:13 | NUR ---
BBIBS FOR EVALUATION OF R FOOT PAIN S/O GLF AND FX BACK IN NOVEMBER. PT CURRENTLY WEARING A BOOT W/ SOME EDEMA ON R ANKLE. PT ALSO W/ C/O DYSURIA. - HEMATURIA.
[2019-01-31 23:16] LABS: APPEARANCE,URINE Clear (CLEAR); BILIRUBIN,URINE Negative (NEGATIVE); BLOOD, URINE Negative Ery/uL (NEGATIVE); COLOR,URINE Light yellow (YELLOW); KETONES,URINE Negative (NEGATIVE); LEUKOCYTE ESTERASE ,URINE Moderate (NEGATIVE); NITRITE, URINE Positive (NEGATIVE); PROTEIN,URINE Negative (NEGATIVE); UGLUCOSE Negative (NEGATIVE); UROBILINOGEN,URINE 0.2 EU/dL (0.2)
[2019-01-31 23:47] LABS: BACTERIA,URINE Moderate /HPF (None Seen); WBC,URINE TOO NUMEROUS TO COUN /HPF (0-3)
[2019-01-31] MEDS ORDERED: NITROFURANTOIN/NITROFURAN MAC 100 MG CAPSULE ONE (23:52)
[2019-01-31] MEDS ORDERED: IBUPROFEN 600 MG TABLET PO ONE (23:52)
[2019-02-01] MEDS ORDERED: NITROFURANTOIN/NITROFURAN MAC 100 MG CAPSULE PO ONE
[2019-02-01] MEDS ORDERED: IBUPROFEN 600 MG TABLET PO ONE
--- NOTE | 2019-02-01 00:02 | NUR ---
Patient given Rx and written and verbal discharge instructions. Patient verbalizes understanding of instructions. Patient is ambulatory with steady gait. . Patient given list of available shelters in surrounding area. PT was also provided w/ food/ snack and tap card. pt has proper clothing on.
[2019-02-01 00:33] LABS: SQUAMOUS EPITHELIAL CELL,UR Few /HPF (None Seen)
== END 2019-02-01 00:14 | disposition home or self-care (01) ==
LOC: ER 22:49
DX: N39.0 Urinary tract infection, site not specified (principal); F32.9 Major depressive disorder, single episode, unspecified; J44.9 Chronic obstructive pulmonary disease, unspecified; F17.200 Nicotine dependence, unspecified, uncomplicated; Z60.2 Problems related to living alone; Z79.899 Other long term (current) drug therapy
CPT/HCPCS: 81000-TC; 87086-TC; 87186-TC

== ENCOUNTER 2019-04-03 22:04 | Inpatient (IN) | payer MEDICARE, MEDICAID ==
[~2019-04-03] VITALS: Ht 170.2 cm; Wt 79.8 kg
[2019-04-03 22:59] LABS: BASOPHILS # (AUTO) 0.1 /CMM (0.0-0.2); EOSINOPHILS % (AUTO) 2.9 % (0.0-6.0); HEMATOCRIT 41 % (33-45); HEMOGLOBIN 13.6 g/dL (11.5-14.8); LYMPHOCYTES # (AUTO) 2.5 /CMM (0.8-4.8); LYMPHOCYTES % (AUTO) 30.5 % (20.0-44.0); MEAN CORPUSCULAR HGB CONC 34 g/dl (31.0-36.0); MEAN CORPUSCULAR VOLUME 90 fL (82-100); MONOCYTES # (AUTO) 0.6 /CMM (0.1-1.30); MONOCYTES % (AUTO) 7.3 % (2.0-12.0); NEUTROPHILS # (AUTO) 4.7 /CMM (1.8-8.9); NEUTROPHILS % (AUTO) 58.3 % (43.0-81.0); PLATELET COUNT (AUTO) 203 /CMM (150-450); WHITE BLOOD COUNT (AUTO) 8.1 K/uL (4.3-11.0)
[2019-04-03] MEDS ORDERED: LOPERAMIDE HCL (2 MG CAP) 2 MG CAPSULE PO ONE (23:00)
[2019-04-03 23:12] LABS: ALANINE AMINOTRANSFERASE 22 U/L (12-78); ALBUMIN 4.2 g/dL (3.4-5.0); ALCOHOL, BLOOD < 3 mg/dL (0-0); ALKALINE PHOSPHATASE 100 U/L (46-116); ASPARTATE AMINOTRANSFERASE 19 U/L (15-37); BILIRUBIN,TOTAL 0.2 mg/dL (0.2-1.0); CALCIUM, SERUM 8.4 mg/dL (8.5-10.1); CARBON DIOXIDE 31 mmol/L (21-32); CHLORIDE 99 mmol/L (98-107); CREATININE 0.7 mg/dL (0.6-1.3); GLUCOSE 80 mg/dL (74-106); SALICYLATE 2.9 mg/dL (2.8-20.0); SODIUM SERUM 136 mmol/L (136-145); TOTAL PROTEIN, SERUM 7.6 g/dL (6.4-8.2); UREA NITROGEN, BLOOD 10 mg/dL (7-18)
[2019-04-03 23:14] LABS: ACETAMINOPHEN 0 ug/ml (10-30)
[2019-04-03 23:15] LABS: POTASSIUM 2.8 mmol/L (3.5-5.1)
[2019-04-03] MEDS ORDERED: IV NS 0.9% 1,000 ML BAG IV ONE (23:30)
[2019-04-03] MEDS ORDERED: POTASSIUM CHLORIDE 20 MEQ TAB.PRT.SR PO ONE (23:30)
[2019-04-04] MEDS ORDERED: LOPERAMIDE HCL (2 MG CAP) 2 MG CAPSULE PO ONE (00:12)
[2019-04-04] MEDS ORDERED: POTASSIUM CHLORIDE 20 MEQ TAB.PRT.SR PO ONE ×3 (00:12→02:04)
[2019-04-04 01:05] LABS: APPEARANCE,URINE Clear (CLEAR); BILIRUBIN,URINE Negative (NEGATIVE); BLOOD, URINE Trace-intact Ery/uL (NEGATIVE); COLOR,URINE Yellow (YELLOW); KETONES,URINE Negative (NEGATIVE); LEUKOCYTE ESTERASE ,URINE Trace (NEGATIVE); NITRITE, URINE Negative (NEGATIVE); PH,URINE 6.5 (5.0-8.0); PROTEIN,URINE Negative (NEGATIVE); UGLUCOSE Negative (NEGATIVE); UROBILINOGEN,URINE 0.2 EU/dL (0.2)
[2019-04-04 01:52] LABS: RBC,URINE 0-2 /HPF (0-2); WBC,URINE 0-2 /HPF (0-3)
[2019-04-04 01:53] LABS: BACTERIA,URINE Few /HPF (None Seen); SQUAMOUS EPITHELIAL CELL,UR Rare /HPF (None Seen)
[2019-04-04] MEDS ORDERED: OLANZAPINE 5 MG TABLET PO ONE (02:00)
[2019-04-04] MEDS ORDERED: LORAZEPAM 1 MG TABLET PO ONE (02:00)
[2019-04-04] MEDS ORDERED: CEPHALEXIN MONOHYDRATE 500 MG CAPSULE PO ONE ×2 (02:00→02:03)
[2019-04-04] MEDS ORDERED: LORAZEPAM 1 MG TABLET ONE (02:03)
[2019-04-04] MEDS ORDERED: OLANZAPINE 5 MG TABLET ONE (02:03)
[2019-04-04] MEDS ORDERED: BLOOD SUGAR DIAGNOSTIC 1 EACH STRIP IN ONE (11:30)
[2019-04-04] MEDS ORDERED: MAGNESIUM HYDROXIDE 30 ML UDC PO PRN (11:30)
[2019-04-04] MEDS ORDERED: MAG HYDROX/AL HYDROX/SIMETH 30 ML UDC PO PRN (11:30)
[2019-04-04 11:35] VITALS: BP 117/74
[2019-04-04 16:00] VITALS: BP 112/64
[2019-04-04 20:23] VITALS: BP 112/65
[2019-04-05 07:21] LABS: ALBUMIN 3.3 g/dL (3.4-5.0); BILIRUBIN,TOTAL 0.3 mg/dL (0.2-1.0); CALCIUM, SERUM 8.5 mg/dL (8.5-10.1); CREATININE 0.6 mg/dL (0.6-1.3); POTASSIUM 3.9 mmol/L (3.5-5.1); TOTAL PROTEIN, SERUM 6.5 g/dL (6.4-8.2)
[2019-04-05 08:00] VITALS: BP 114/72
[2019-04-05 08:00] LABS: CHOLESTEROL 202 mg/dL (<200); HDL CHOLESTEROL 38 mg/dL (40-60); LDL 137 mg/dL (0-99); TRIGLYCERIDES 128 mg/dL (30-150)
[2019-04-05] MEDS: PRIMIDONE 250 MG TABLET PO SCH ×2 (08:31→17:01)
[2019-04-05 16:00] VITALS: BP 118/66
[2019-04-05 20:37] VITALS: BP 126/68
[2019-04-05] MEDS: ARIPIPRAZOLE 5 MG TABLET PO SCH (21:20)
[2019-04-05] MEDS: TEMAZEPAM 7.5 MG CAPSULE PO PRN (21:21)
[2019-04-06 08:00] VITALS: BP 145/87
[2019-04-06] MEDS: PRIMIDONE 250 MG TABLET PO SCH ×2 (08:18→16:50)
[2019-04-06] MEDS: SERTRALINE HCL 50 MG TABLET PO SCH (08:34)
[2019-04-06] MEDS: ACETAMINOPHEN 325 MG TABLET PO PRN (12:13)
[2019-04-06 16:00] VITALS: BP 138/91
[2019-04-06] MEDS: LORAZEPAM 0.5 MG TABLET PO PRN (18:16)
[2019-04-06 20:20] VITALS: BP 103/62
[2019-04-06] MEDS: ARIPIPRAZOLE 5 MG TABLET PO SCH (21:42)
[2019-04-06] MEDS: TEMAZEPAM 7.5 MG CAPSULE PO PRN (21:44)
[2019-04-07 08:30] VITALS: BP 146/80
[2019-04-07] MEDS: PRIMIDONE 250 MG TABLET PO SCH ×2 (08:54→16:28)
[2019-04-07] MEDS: SERTRALINE HCL 50 MG TABLET PO SCH (08:54)
[2019-04-07] MEDS: LORAZEPAM 0.5 MG TABLET PO PRN (16:28)
[2019-04-07 16:30] VITALS: BP 121/83
[2019-04-07 20:14] VITALS: BP 112/67
[2019-04-07] MEDS: ARIPIPRAZOLE 5 MG TABLET PO SCH (21:27)
[2019-04-07] MEDS: TEMAZEPAM 7.5 MG CAPSULE PO PRN (21:28)
[2019-04-08 08:00] VITALS: BP 125/73
[2019-04-08] MEDS: PRIMIDONE 250 MG TABLET PO SCH ×2 (08:29→16:39)
[2019-04-08] MEDS: SERTRALINE HCL 50 MG TABLET PO SCH (08:30)
[2019-04-08 16:00] VITALS: BP 102/65
[2019-04-08] MEDS: ACETAMINOPHEN 325 MG TABLET PO PRN (18:36)
[2019-04-08 20:25] VITALS: BP 108/59
[2019-04-08] MEDS: ARIPIPRAZOLE 5 MG TABLET PO SCH (21:04)
[2019-04-08] MEDS: TEMAZEPAM 7.5 MG CAPSULE PO PRN (21:31)
[2019-04-09 08:00] VITALS: BP 99/57
[2019-04-09] MEDS: SERTRALINE HCL 50 MG TABLET PO SCH (08:40)
[2019-04-09] MEDS: PRIMIDONE 250 MG TABLET PO SCH ×2 (08:40→17:40)
[2019-04-09 10:06] LABS: BASOPHILS # (AUTO) 0.1 /CMM (0.0-0.2); BASOPHILS % (AUTO) 0.8 % (0.0-2.0); EOSINOPHILS % (AUTO) 3.2 % (0.0-6.0); HEMATOCRIT 41 % (33-45); HEMOGLOBIN 13.8 g/dL (11.5-14.8); LYMPHOCYTES # (AUTO) 1.3 /CMM (0.8-4.8); MEAN CORPUSCULAR HGB CONC 34 g/dl (31.0-36.0); MEAN CORPUSCULAR VOLUME 89 fL (82-100); MONOCYTES # (AUTO) 0.5 /CMM (0.1-1.30); MONOCYTES % (AUTO) 7.3 % (2.0-12.0); NEUTROPHILS # (AUTO) 4.6 /CMM (1.8-8.9); NEUTROPHILS % (AUTO) 69.7 % (43.0-81.0); PLATELET COUNT (AUTO) 169 /CMM (150-450); RED BLOOD CELL COUNT(AUTO) 4.61 MIL/uL (4.0-5.2); WHITE BLOOD COUNT (AUTO) 6.6 K/uL (4.3-11.0)
[2019-04-09 10:17] LABS: CALCIUM, SERUM 8.6 mg/dL (8.5-10.1); CREATININE 0.7 mg/dL (0.6-1.3); MAGNESIUM 1.9 mg/dL (1.8-2.4); PHOSPHORUS 3.1 mg/dL (2.5-4.9); POTASSIUM 3.8 mmol/L (3.5-5.1)
[2019-04-09] MEDS: LORAZEPAM 0.5 MG TABLET PO PRN (14:29)
[2019-04-09 16:00] VITALS: BP 100/63
[2019-04-09 20:34] VITALS: BP 95/51
[2019-04-09 21:27] VITALS: BP 95/51
[2019-04-09] MEDS: ARIPIPRAZOLE 5 MG TABLET PO SCH (21:58)
[2019-04-09] MEDS: TEMAZEPAM 7.5 MG CAPSULE PO PRN (21:59)
[2019-04-10 08:00] VITALS: BP 145/75
[2019-04-10] MEDS: PRIMIDONE 250 MG TABLET PO SCH ×2 (08:15→16:00)
[2019-04-10] MEDS: SERTRALINE HCL 50 MG TABLET PO SCH (08:15)
[2019-04-10 16:00] VITALS: BP 151/97
[2019-04-10 16:57] VITALS: BP 134/88
== END 2019-04-10 17:00 | DRG 881 ==
LOC: ER 22:09 → GPS 04-04 10:31
PROVIDERS: ADMIT Psychiatry & Neurology Psychiatry; ATTEND Nurse Practitioner Acute Care
DX: F32.9 Major depressive disorder, single episode, unspecified (principal); F10.231 Alcohol dependence with withdrawal delirium; G92 Toxic encephalopathy; N39.0 Urinary tract infection, site not specified; R45.851 Suicidal ideations; J44.9 Chronic obstructive pulmonary disease, unspecified; R32 Unspecified urinary incontinence; E87.6 Hypokalemia; F19.10 Other psychoactive substance abuse, uncomplicated; Z79.899 Other long term (current) drug therapy; Z59.0 Homelessness; F17.200 Nicotine dependence, unspecified, uncomplicated
CPT/HCPCS: 36415; 80048-TC; 80053-TC; 80061-TC; 80076-TC; 80305; 81000-TC; 82962-TC; 83735-TC; 84100-TC; 85025-TC; G0480; J7030

== ENCOUNTER 2019-06-09 15:45 | Emergency (ER) | payer MEDICARE, OTHER ==
[~2019-06-09] VITALS: Ht 170.2 cm; Wt 77.1 kg
[~2019-06-09 15:45] MED LIST changes: -ALBU18HF2 IH
[2019-06-09 15:58] VITALS: BP 122/89
[2019-06-09] MEDS ORDERED: oxyCODONE/APAP (5/325 MG) 1 UDTAB TABLET PO ONE (16:30)
[2019-06-09 17:19] LABS: APPEARANCE,URINE Slightly Cloudy (CLEAR); BILIRUBIN,URINE SMALL (NEGATIVE); BLOOD, URINE Trace-intact Ery/uL (NEGATIVE); COLOR,URINE Yellow (YELLOW); KETONES,URINE Negative (NEGATIVE); LEUKOCYTE ESTERASE ,URINE Trace (NEGATIVE); NITRITE, URINE Negative (NEGATIVE); PROTEIN,URINE Trace mg/dl (NEGATIVE); UGLUCOSE Negative (NEGATIVE)
[2019-06-09 17:31] LABS: BACTERIA,URINE Many /HPF (None Seen); SQUAMOUS EPITHELIAL CELL,UR Many /HPF (None Seen)
[2019-06-09 17:32] LABS: RBC,URINE 0-2 /HPF (0-2)
[2019-06-09] MEDS ORDERED: SULFAMETH/TRIMETH 800/160 MG 1 UDTAB TABLET ONE (17:39)
[2019-06-09] MEDS ORDERED: oxyCODONE/APAP (5/325 MG) 1 UDTAB TABLET ONE (17:39)
[2019-06-09] MEDS ORDERED: SULFAMETH/TRIMETH 800/160 MG 1 UDTAB TABLET PO ONE (18:00)
== END 2019-06-09 17:43 | disposition home or self-care (01) ==
LOC: ER 15:50
DX: N39.0 Urinary tract infection, site not specified (principal); R51 Headache; R32 Unspecified urinary incontinence; Z71.6 Tobacco abuse counseling; Z60.2 Problems related to living alone; Z79.899 Other long term (current) drug therapy
CPT/HCPCS: 81000-TC; 87086-TC

== ENCOUNTER 2019-06-10 18:49 | Emergency (ER) | payer MEDICARE, OTHER ==
[~2019-06-10] VITALS: Ht 167.6 cm; Wt 75.7 kg
--- NOTE | 2019-06-10 19:10 | NUR ---
PT AAOX4. AMBULATORY. C/O DIARRHEA SINCE LAST NIGHT.
[2019-06-10 19:29] LABS: BASOPHILS # (AUTO) 0.1 /CMM (0.0-0.2); BASOPHILS % (AUTO) 1.4 % (0.0-2.0); EOSINOPHILS % (AUTO) 3.8 % (0.0-6.0); HEMATOCRIT 41 % (33-45); HEMOGLOBIN 13.3 g/dL (11.5-14.8); LYMPHOCYTES # (AUTO) 2.3 /CMM (0.8-4.8); LYMPHOCYTES % (AUTO) 37.5 % (20.0-44.0); MEAN CORPUSCULAR HGB CONC 33 g/dl (31.0-36.0); MEAN CORPUSCULAR VOLUME 89 fL (82-100); MONOCYTES # (AUTO) 0.5 /CMM (0.1-1.30); MONOCYTES % (AUTO) 7.6 % (2.0-12.0); NEUTROPHILS % (AUTO) 49.7 % (43.0-81.0); PLATELET COUNT (AUTO) 264 /CMM (150-450); RED BLOOD CELL COUNT(AUTO) 4.56 MIL/uL (4.0-5.2)
[2019-06-10] MEDS ORDERED: IV NS 0.9% 1,000 ML BAG IV ONE (19:30)
[2019-06-10 19:37] LABS: CALCIUM, SERUM 9.1 mg/dL (8.5-10.1); CREATININE 0.8 mg/dL (0.6-1.3); POTASSIUM 3.8 mmol/L (3.5-5.1)
[2019-06-10 19:44] LABS: BILIRUBIN,DIRECT 0.1 mg/dL (0.0-0.2); BILIRUBIN,TOTAL 0.2 mg/dL (0.2-1.0); TOTAL PROTEIN, SERUM 7.5 g/dL (6.4-8.2)
--- NOTE | 2019-06-10 19:55 | NUR ---
Rocco schwartz in EDM - 06/10/19 at 2014 by JOEY Patient discharged to home in stable condition. Written and verbal after care instructions given. Patient verbalizes understanding of instruction and RX. PT ambulatory with a steady gait.
--- NOTE | 2019-06-10 21:01 | NUR ---
IV removed. Catheter intact and site benign. Pressure and 4x4 applied to site. No bleeding noted.
--- NOTE | 2019-06-10 21:02 | NUR ---
Patient discharged to home in stable condition. Written and verbal after care instructions given. Patient verbalizes understanding of instruction and RX. PT ambulatory with a steady gait. pt signed homeless waiver.
[2019-06-10 21:13] VITALS: BP 132/78
== END 2019-06-10 21:14 | disposition home or self-care (01) ==
LOC: ER 18:49
DX: R19.7 Diarrhea, unspecified (principal); F17.200 Nicotine dependence, unspecified, uncomplicated; Z60.2 Problems related to living alone; Z79.899 Other long term (current) drug therapy
CPT/HCPCS: 36415; 80048; 80076; 83690; 85025; 96360; 99283; J7030